=== PATIENT | male | born 1940 | race African-American/Black ===

== ENCOUNTER 2017-07-06 11:34 | Observation (INO) ==
[2017-07-06] MEDS ORDERED: ASPIRIN 325 MG TABLET PO STA (12:04)
[2017-07-06 12:26] LABS: Basophils % 0.3 % (0.0-0.8); Eosinophils # 0.1 10*3/uL (0.0-0.87); Eosinophils % 1.5 % (0.00-10.9); Hematocrit 41.6 VOL% (42.0-52.0); Hemoglobin 13.4 GM/DL (14.0-18.0); Immature Granulocytes % 0.3 %; Immature Granulocytes Absolute 0.02 #; Lymphocytes # 1.7 10*3/uL (1.4-4.0); Lymphocytes % 28.8 % (21.2-54.2); Mean Corpuscular HGB Conc 32.2 GM/DL (32-36); Mean Corpuscular Hemoglobin 25 PG (27-34); Mean Platelet Volume 10.8 FL (9.6-12.0); Monocytes # 0.6 10*3/uL (0.11-0.8); Monocytes % 9.6 % (1.7-12.7); Neutrophils # 3.5 10*3/uL (1.4-7.4); Neutrophils % 59.5 % (38.7-73.9); Platelet Count 191 T/CUMM (130-400); Red Blood Count 5.33 MC/CUMM (3.8-5.5); Red Cell Distribution Width 15.9 % (9.3-17.3); White Blood Count 5.9 T/CUMM (4-12)
[2017-07-06 12:38] LABS: Apearance,Urine Slightly Hazy (Clear); Bacteria,Urine Occasional /HPF (Few); Bilirubin,Urine Negative (Negative); Blood, Urine Moderate mg/dL (Negative); Glucose,Urine (UA) Negative (Negative); Ketones,Urine Negative (Negative); Mucus,Urine Occasional /LPF (Occasional); Nitrite,Urine Negative (Negative); Protein,Urine 100 MG/DL; RBC,Urine 1 /HPF (0-4); Squamous Epithelial Cell,Urine Occasional /HPF (0-10); Urine Color Yellow (Yellow); Urine Specific Gravity 1.015 (1.001-1.035); Urine Urobilinogen < 2.0 EU/DL (0.2-1.0); WBC,Urine 1 /HPF (0-6)
[2017-07-06] MEDS ORDERED: ASPIRIN 325 MG TABLET ONE (12:38)
[2017-07-06 12:51] LABS: Alanine Aminotransferase 16 U/L (16-61); Albumin 3.7 G/DL (3.4-5.0); Alkaline Phosphatase 103 U/L (45-117); Aspartate Amino Transferase 15 U/L (0-37); Bilirubin,Total < 0.39 MG/DL (0.2-1.0); Blood Urea Nitrogen 19 MG/DL (7-18); Calcium 9.2 MG/DL (8.5-10.1); Glucose 101 MG/DL (74-106); Osmolality,Calculated 280.4 MOS/KG (273-304); Potassium 3.7 MMOL/L (3.5-5.1); Sodium 140 MMOL/L (136-145); Total Protein 7.3 G/DL (6.4-8.3)
[2017-07-06 13:50] LABS: Barbiturates Screen,Urine Negative (Negative); Benzodiazepines Screen,Urine Negative (Negative); Cannabinoid Screen,Urine Negative (Negative); Opiate Screen,Urine Negative (Negative); Phencyclidine Screen,Urine Negative (Negative)
[2017-07-06] MEDS ORDERED: ACETAMINOPHEN 325 MG TABLET PO PRN (16:13)
[2017-07-06] MEDS ORDERED: NITROGLYCERIN SL 0.4 MG TABLET SL PRN (16:13)
[2017-07-06] MEDS ORDERED: DOCUSATE SODIUM 100 MG CAPSULE PO PRN (16:13)
[2017-07-06 23:07] LABS: Troponin I Only 0.066 NG/ML (0.00-0.045)
[2017-07-07 05:27] LABS: Basophils % 0.3 % (0.0-0.8); Eosinophils # 0.2 10*3/uL (0.0-0.87); Hematocrit 37.1 VOL% (42.0-52.0); Hemoglobin 11.6 GM/DL (14.0-18.0); Immature Granulocytes % 0.3 %; Immature Granulocytes Absolute 0.02 #; Lymphocytes # 1.8 10*3/uL (1.4-4.0); Mean Corpuscular HGB Conc 31.3 GM/DL (32-36); Mean Corpuscular Hemoglobin 25 PG (27-34); Mean Corpuscular Volume 79.4 FL (87-102); Mean Platelet Volume 10.7 FL (9.6-12.0); Monocytes # 0.6 10*3/uL (0.11-0.8); Monocytes % 10.5 % (1.7-12.7); Neutrophils # 3.1 10*3/uL (1.4-7.4); Neutrophils % 53.9 % (38.7-73.9); Platelet Count 170 T/CUMM (130-400); Red Blood Count 4.67 MC/CUMM (3.8-5.5); Red Cell Distribution Width 15.9 % (9.3-17.3); White Blood Count 5.7 T/CUMM (4-12)
[2017-07-07 05:57] LABS: Calcium 8.8 MG/DL (8.5-10.1); Osmolality,Calculated 284.1 MOS/KG (273-304); Potassium 3.8 MMOL/L (3.5-5.1); Thyroid Stimulating Hormone 1.16 uIU/ml (0.358-3.74)
[2017-07-07 07:35] VITALS: BP 148/70
[2017-07-07 07:36] LABS: Troponin I Only 0.055 NG/ML (0.00-0.045)
[2017-07-07] MEDS ORDERED: POTASSIUM CHLORIDE 20 MEQ TABLET PO SCH (09:00)
[2017-07-07] MEDS ORDERED: CLOPIDOGREL 75 MG TABLET PO SCH (09:00)
[2017-07-07] MEDS ORDERED: amLODIPine 5 MG TABLET PO SCH (09:00)
[2017-07-07] MEDS ORDERED: PANTOPRAZOLE 40 MG TABLET PO SCH (09:00)
[2017-07-07] MEDS ORDERED: ASPIRIN EC 81 MG TABLET PO SCH (09:00)
[2017-07-07] MEDS ORDERED: CARVEDILOL 25 MG TABLET PO SCH ×2 (09:00→21:00)
[2017-07-07] MEDS ORDERED: VALSARTAN/HCTZ 80-12.5 MG TABLET PO SCH (09:00)
[2017-07-07] MEDS ORDERED: FUROSEMIDE 40 MG TABLET PO SCH (12:30)
== END 2017-07-07 14:39 | disposition home or self-care (01) ==
LOC: EDBD → EDUNIT# → N.EDINP 11:34 → N.ED 11:34 → N.5E 15:50
PROVIDERS: ADMIT Internal Medicine Nephrology; ATTEND Internal Medicine Nephrology

== ENCOUNTER 2018-05-06 14:10 | Observation (INO) ==
[2018-05-06 15:06] LABS: Basophils % 0.4 % (0.0-0.8); Eosinophils # 0.1 10*3/uL (0.0-0.87); Eosinophils % 2.4 % (0.00-10.9); Hematocrit 38.8 VOL% (42.0-52.0); Hemoglobin 12.3 GM/DL (14.0-18.0); Immature Granulocytes % 0.2 %; Immature Granulocytes Absolute 0.01 #; Lymphocytes # 1.7 10*3/uL (1.4-4.0); Lymphocytes % 32.2 % (21.2-54.2); Mean Corpuscular HGB Conc 31.7 GM/DL (32-36); Mean Corpuscular Hemoglobin 24 PG (27-34); Mean Corpuscular Volume 76.4 FL (87-102); Monocytes # 0.5 10*3/uL (0.11-0.8); Monocytes % 8.8 % (1.7-12.7); Platelet Count 182 T/CUMM (130-400); Red Blood Count 5.08 MC/CUMM (3.8-5.5); Red Cell Distribution Width 16.2 % (9.3-17.3); White Blood Count 5.3 T/CUMM (4-12)
[2018-05-06 15:14] LABS: INR 1.1; PT Patient Result 11.1 SECS; Partial Thromboplastin Time 28.9 SECS (0-40)
[2018-05-06 15:26] LABS: Alanine Aminotransferase 19 U/L (16-61); Albumin 3.3 G/DL (3.4-5.0); Alkaline Phosphatase 91 U/L (45-117); Aspartate Amino Transferase 18 U/L (0-37); Bilirubin,Total < 0.39 MG/DL (0.2-1.0); Blood Urea Nitrogen 16 MG/DL (7-18); Calcium 8.3 MG/DL (8.5-10.1); Glucose 109 MG/DL (74-106); Osmolality,Calculated 287.8 MOS/KG (273-304); Potassium 3.1 MMOL/L (3.5-5.1); Sodium 144 MMOL/L (136-145); Total Protein 6.7 G/DL (6.4-8.3)
[2018-05-06] MEDS ORDERED: POTASSIUM CHLORIDE 20 MEQ TABLET PO STA (16:07)
[2018-05-06 17:28] LABS: Apearance,Urine CLEAR (Clear); Bilirubin,Urine Negative (Negative); Blood, Urine Negative (Negative); Glucose,Urine (UA) Negative (Negative); Ketones,Urine Negative (Negative); Mucus,Urine Occasional /LPF (Occasional); Nitrite,Urine Negative (Negative); Protein,Urine 30 MG/DL; RBC,Urine <1 /HPF (0-4); Squamous Epithelial Cell,Urine Occasional /HPF (0-10); Urine Color Yellow (Yellow); Urine Specific Gravity 1.012 (1.001-1.035); WBC,Urine <1 /HPF (0-6)
[2018-05-06] MEDS ORDERED: NITROGLYCERIN SL 0.4 MG TABLET SL PRN (20:27)
[2018-05-06] MEDS ORDERED: ONDANSETRON 4 MG/2 ML VIAL IV PRN (20:31)
[2018-05-06] MEDS ORDERED: MAGNESIUM SULF RIDER 2 GM in PREMIX 1 EACH IV ONE (20:36)
[2018-05-06] MEDS: POTASSIUM CHLORIDE 20 MEQ TABLET PO SCH (20:55)
[2018-05-06] MEDS: CARVEDILOL 25 MG TABLET PO SCH (20:55)
[2018-05-06] MEDS: NIFEdipine 10 MG CAPSULE PO PRN (20:55)
[2018-05-06] MEDS ORDERED: ROSUVASTATIN 20 MG TABLET PO SCH (21:00)
[2018-05-06] MEDS ORDERED: ENOXAPARIN 30 MG/0.3 ML SYRINGE SUBCUT SCH (21:00)
[2018-05-07] MEDS: POTASSIUM CHLORIDE 20 MEQ TABLET PO SCH ×2 (00:56→05:24)
[2018-05-07] MEDS: NIFEdipine 10 MG CAPSULE PO PRN (05:24)
[2018-05-07 06:40] LABS: Troponin I 0.079 NG/ML (0.00-0.045)
[2018-05-07 06:46] LABS: Calcium 8.8 MG/DL (8.5-10.1); Osmolality,Calculated 283.1 MOS/KG (273-304); Potassium 3.5 MMOL/L (3.5-5.1); Thyroid Stimulating Hormone 1.86 uIU/ml (0.358-3.74)
[2018-05-07] MEDS ORDERED: ASPIRIN EC 81 MG TABLET PO SCH (09:00)
[2018-05-07] MEDS ORDERED: amLODIPine 5 MG TABLET PO SCH (09:00)
[2018-05-07] MEDS ORDERED: FINASTERIDE 5 MG TABLET PO SCH (09:00)
[2018-05-07] MEDS ORDERED: VALSARTAN/HCTZ 80-12.5 MG TABLET PO SCH (09:00)
[2018-05-07] MEDS ORDERED: CLOPIDOGREL 75 MG TABLET PO SCH (09:00)
[2018-05-07] MEDS ORDERED: PANTOPRAZOLE 40 MG TABLET PO SCH (09:00)
[2018-05-07] MEDS: CARVEDILOL 25 MG TABLET PO SCH (09:32)
[2018-05-07 11:36] VITALS: BP 145/74
== END 2018-05-07 14:46 | disposition home or self-care (01) ==
LOC: N.ED 14:10 → N.EDINP 14:10 → N.3E 19:50
PROVIDERS: ADMIT Internal Medicine; ATTEND Internal Medicine

== ENCOUNTER 2018-11-01 12:37 | Inpatient (IN) ==
[2018-11-01 14:16] LABS: Alanine Aminotransferase 24 U/L (16-61); Albumin 2.6 G/DL (3.4-5.0); Alkaline Phosphatase 93 U/L (45-117); Aspartate Amino Transferase 17 U/L (0-37); Bilirubin,Total < 0.39 MG/DL (0.2-1.0); Blood Urea Nitrogen 15 MG/DL (7-18); Calcium 8.2 MG/DL (8.5-10.1); Glucose 108 MG/DL (74-106); Potassium 3.2 MMOL/L (3.5-5.1); Sodium 143 MMOL/L (136-145); Total Protein 6.4 G/DL (6.4-8.3)
[2018-11-01 14:19] LABS: Basophils % 0.4 % (0.0-0.8); Eosinophils # 0.1 10*3/uL (0.0-0.87); Hemoglobin 11.9 GM/DL (14.0-18.0); Immature Granulocytes % 0.6 %; Immature Granulocytes Absolute 0.05 #; Lymphocytes # 1.7 10*3/uL (1.4-4.0); Lymphocytes % 19.9 % (21.2-54.2); Mean Corpuscular HGB Conc 29.8 GM/DL (32-36); Mean Corpuscular Hemoglobin 24 PG (27-34); Mean Platelet Volume 11.1 FL (9.6-12.0); Monocytes # 0.7 10*3/uL (0.11-0.8); Monocytes % 8.5 % (1.7-12.7); Neutrophils # 5.8 10*3/uL (1.4-7.4); Neutrophils % 69.6 % (38.7-73.9); Platelet Count 230 T/CUMM (130-400); Red Blood Count 4.94 MC/CUMM (3.8-5.5); Red Cell Distribution Width 17.2 % (9.3-17.3); White Blood Count 8.4 T/CUMM (4-12)
[2018-11-01] MEDS ORDERED: POTASSIUM CHLORIDE RIDER 20 MEQ in PREMIX 1 EACH IV STA (15:32)
[2018-11-01] MEDS ORDERED: POTASSIUM CHLORIDE RIDER 10 MEQ in PREMIX 1 EACH IV STA (15:43)
[2018-11-01] MEDS ORDERED: POTASSIUM CHLORIDE RIDER 10 MEQ in PREMIX 1 EACH IV SCH ×2 (16:00→23:00)
[2018-11-01] MEDS ORDERED: hydrALAZINE 20 MG/1 ML VIAL IV STA (19:03)
[2018-11-01] MEDS ORDERED: ALBUTEROL/IPRATROPIUM 3 ML NEB RESP TX ONE (20:20)
[2018-11-01] MEDS ORDERED: ALBUTEROL 2.5 MG/3 ML NEB RESP TX PRN (20:27)
[2018-11-01] MEDS ORDERED: ACETAMINOPHEN 325 MG TABLET PO PRN (20:27)
[2018-11-01] MEDS ORDERED: SODIUM CHLORIDE 0.45% 1,000 ML IV SCH (20:30)
[2018-11-01] MEDS: AZITHROMYCIN INJ 500 MG in SODIUM CHLORIDE 0.9% 250 ML IV SCH (20:51)
[2018-11-01] MEDS: ENOXAPARIN 40 MG/0.4 ML SYRINGE SUBCUT SCH (20:54)
[2018-11-01] MEDS ORDERED: NITROGLYCERIN SL 0.4 MG TABLET SL PRN (21:50)
[2018-11-01 22:49] LABS: Troponin I 0.083 NG/ML (0.00-0.045)
[2018-11-01] MEDS: FUROSEMIDE 40 MG/4 ML VIAL IV SCH (23:12)
[2018-11-01] MEDS: guaiFENesin/DM ER 600-30 MG TABLET PO SCH (23:12)
[2018-11-02] MEDS: PIPERACILLIN/TAZOBACTAM 3,375 MG in SODIUM CHLORIDE 0.9% 100 ML IV SCH ×3 (02:53→20:25)
[2018-11-02] MEDS: FUROSEMIDE 40 MG/4 ML VIAL IV SCH (05:12)
[2018-11-02 05:59] LABS: Basophils % 0.2 % (0.0-0.8); Eosinophils # 0.1 10*3/uL (0.0-0.87); Eosinophils % 0.6 % (0.00-10.9); Hematocrit 40.8 VOL% (42.0-52.0); Hemoglobin 12.4 GM/DL (14.0-18.0); Immature Granulocytes % 0.5 %; Immature Granulocytes Absolute 0.04 #; Lymphocytes # 1.8 10*3/uL (1.4-4.0); Lymphocytes % 21.2 % (21.2-54.2); Mean Corpuscular HGB Conc 30.4 GM/DL (32-36); Mean Corpuscular Hemoglobin 24 PG (27-34); Mean Corpuscular Volume 78.9 FL (87-102); Mean Platelet Volume 11.6 FL (9.6-12.0); Monocytes # 0.8 10*3/uL (0.11-0.8); Monocytes % 9.7 % (1.7-12.7); Neutrophils # 5.8 10*3/uL (1.4-7.4); Neutrophils % 67.8 % (38.7-73.9); Platelet Count 259 T/CUMM (130-400); Red Blood Count 5.17 MC/CUMM (3.8-5.5); Red Cell Distribution Width 17.1 % (9.3-17.3); White Blood Count 8.6 T/CUMM (4-12)
[2018-11-02 06:14] LABS: Calcium 8.8 MG/DL (8.5-10.1); Osmolality,Calculated 285.8 MOS/KG (273-304); Potassium 3.1 MMOL/L (3.5-5.1)
[2018-11-02 06:44] LABS: Troponin I 0.097 NG/ML (0.00-0.045)
[2018-11-02] MEDS: FINASTERIDE 5 MG TABLET PO SCH (08:16)
[2018-11-02] MEDS: POTASSIUM CHLORIDE 20 MEQ TABLET PO SCH ×4 (08:16→20:31)
[2018-11-02] MEDS: ASPIRIN EC 81 MG TABLET PO SCH (08:16)
[2018-11-02] MEDS: ROSUVASTATIN 20 MG TABLET PO SCH (08:16)
[2018-11-02] MEDS: guaiFENesin/DM ER 600-30 MG TABLET PO SCH ×2 (08:16→20:27)
[2018-11-02] MEDS: LOSARTAN 50 MG TABLET PO SCH (08:16)
[2018-11-02] MEDS: FLUTICASONE 50 MCG NASAL SPRAY 16 GM BOTTLE BOTH NARES SCH ×2 (08:17→20:27)
[2018-11-02] MEDS: CLOPIDOGREL 75 MG TABLET PO SCH (08:18)
[2018-11-02] MEDS: CARVEDILOL 25 MG TABLET PO SCH ×2 (08:18→20:26)
[2018-11-02] MEDS ORDERED: FUROSEMIDE 40 MG TABLET PO SCH (09:00)
[2018-11-02] MEDS ORDERED: LOSARTAN 25 MG TABLET PO SCH (09:00)
[2018-11-02 14:43] LABS: Troponin I 0.088 NG/ML (0.00-0.045)
[2018-11-02] MEDS: DOCUSATE SODIUM 100 MG CAPSULE PO PRN (14:48)
[2018-11-02] MEDS ORDERED: MAGNESIUM HYDROXIDE SUSP 30 ML UDCUP PO PRN (20:23)
[2018-11-02] MEDS: ENOXAPARIN 40 MG/0.4 ML SYRINGE SUBCUT SCH (20:27)
[2018-11-02] MEDS ORDERED: POTASSIUM CHLORIDE 20 MEQ TABLET PO SCH (20:30)
[2018-11-03] MEDS: AZITHROMYCIN INJ 500 MG in SODIUM CHLORIDE 0.9% 250 ML IV SCH (00:22)
[2018-11-03] MEDS: PIPERACILLIN/TAZOBACTAM 3,375 MG in SODIUM CHLORIDE 0.9% 100 ML IV SCH (03:47)
[2018-11-03 05:54] LABS: Calcium 8.5 MG/DL (8.5-10.1); Osmolality,Calculated 291.7 MOS/KG (273-304); Potassium 4.3 MMOL/L (3.5-5.1)
[2018-11-03 07:16] VITALS: BP 170/80
[2018-11-03] MEDS: ASPIRIN EC 81 MG TABLET PO SCH (08:52)
[2018-11-03] MEDS: CARVEDILOL 25 MG TABLET PO SCH (08:52)
[2018-11-03] MEDS: DOCUSATE SODIUM 100 MG CAPSULE PO PRN (08:52)
[2018-11-03] MEDS: CLOPIDOGREL 75 MG TABLET PO SCH (08:52)
[2018-11-03] MEDS: LOSARTAN 50 MG TABLET PO SCH (08:52)
[2018-11-03] MEDS: ROSUVASTATIN 20 MG TABLET PO SCH (08:52)
[2018-11-03] MEDS: guaiFENesin/DM ER 600-30 MG TABLET PO SCH (08:52)
[2018-11-03] MEDS: FINASTERIDE 5 MG TABLET PO SCH (08:52)
[2018-11-03] MEDS: FLUTICASONE 50 MCG NASAL SPRAY 16 GM BOTTLE BOTH NARES SCH (08:53)
== END 2018-11-03 12:23 | disposition home or self-care (01) | DRG 291 ==
LOC: N.ED 12:37 → N.EDINP 19:48 → SUATTDRO 19:48 → N.TELEN 20:10 → N.5E 20:47
PROVIDERS: ADMIT Nurse Practitioner Family; ATTEND Internal Medicine Cardiovascular Disease

== ENCOUNTER 2018-12-07 12:47 | Inpatient (IN) ==
[2018-12-07] MEDS ORDERED: FUROSEMIDE 40 MG/4 ML VIAL IV STA (13:47)
[2018-12-07 14:17] LABS: Alanine Aminotransferase 16 U/L (16-61); Albumin 2.8 G/DL (3.4-5.0); Alkaline Phosphatase 99 U/L (45-117); Aspartate Amino Transferase 19 U/L (0-37); Blood Urea Nitrogen 17 MG/DL (7-18); Calcium 8.1 MG/DL (8.5-10.1); Glucose 112 MG/DL (74-106); Osmolality,Calculated 288.8 MOS/KG (273-304); Sodium 144 MMOL/L (136-145); Total Protein 6.1 G/DL (6.4-8.3)
[2018-12-07 14:19] LABS: Troponin I 0.049 NG/ML (0.00-0.045)
[2018-12-07 14:20] LABS: PT Patient Result 10.9 SECS
[2018-12-07 14:58] LABS: Basophils % 0.3 % (0.0-0.8); Eosinophils # 0.2 10*3/uL (0.0-0.87); Hematocrit 40.3 VOL% (42.0-52.0); Immature Granulocytes % 0.3 %; Immature Granulocytes Absolute 0.02 #; Lymphocytes # 1.6 10*3/uL (1.4-4.0); Lymphocytes % 23.2 % (21.2-54.2); Mean Corpuscular HGB Conc 29.5 GM/DL (32-36); Mean Corpuscular Hemoglobin 24 PG (27-34); Mean Corpuscular Volume 82.4 FL (87-102); Mean Platelet Volume 11.6 FL (9.6-12.0); Monocytes # 0.7 10*3/uL (0.11-0.8); Monocytes % 9.8 % (1.7-12.7); Neutrophils # 4.4 10*3/uL (1.4-7.4); Neutrophils % 63.4 % (38.7-73.9); Platelet Count 184 T/CUMM (130-400); Red Blood Count 4.89 MC/CUMM (3.8-5.5); Red Cell Distribution Width 16.9 % (9.3-17.3); White Blood Count 6.9 T/CUMM (4-12)
[2018-12-07 14:59] LABS: Hemoglobin 11.9 GM/DL (14.0-18.0)
[2018-12-07] MEDS ORDERED: cefTRIAXone 1,000 MG in SODIUM CHLORIDE 0.9% 100 ML IV STA (15:08)
[2018-12-07] MEDS ORDERED: AZITHROMYCIN INJ 500 MG in SODIUM CHLORIDE 0.9% 250 ML IV STA (15:08)
[2018-12-07] MEDS ORDERED: NITROGLYCERIN 2% OINT 1 INCH/GM PACK TOP STA (15:31)
[2018-12-07] MEDS ORDERED: ACETAMINOPHEN 325 MG TABLET PO PRN (15:56)
[2018-12-07] MEDS ORDERED: ONDANSETRON 4 MG/2 ML VIAL IV PRN (15:56)
[2018-12-07] MEDS ORDERED: LACTULOSE 20 GM/30 ML UDCUP PO PRN (15:56)
[2018-12-07] MEDS ORDERED: ALBUTEROL/IPRATROPIUM 3 ML NEB RESP TX PRN (16:03)
[2018-12-07] MEDS ORDERED: cefTRIAXone 1,000 MG in SODIUM CHLORIDE 0.9% 100 ML IV SCH (16:30)
[2018-12-07 16:49] LABS: Risk Ratio 2.83; VLDL CHOLESTEROL 18.2 MG/DL
[2018-12-07 16:55] LABS: Thyroid Stimulating Hormone 1.05 uIU/ml (0.358-3.74)
[2018-12-07] MEDS ORDERED: hydrALAZINE 20 MG/1 ML VIAL IV PRN (17:01)
[2018-12-07 17:03] LABS: Apearance,Urine CLEAR (Clear); Bacteria,Urine Occasional /HPF (Few); Bilirubin,Urine Negative (Negative); Blood, Urine Negative (Negative); Glucose,Urine (UA) Negative (Negative); Ketones,Urine Negative (Negative); Mucus,Urine Occasional /LPF (Occasional); Nitrite,Urine Negative (Negative); Protein,Urine Negative; RBC,Urine 1 /HPF (0-4); Squamous Epithelial Cell,Urine Occasional /HPF (0-10); Urine Color Colorless (Yellow); Urine Specific Gravity 1.004 (1.001-1.035); Urine Urobilinogen < 2.0 EU/DL (0.2-1.0)
[2018-12-07] MEDS: ALBUTEROL 2.5 MG/3 ML NEB RESP TX SCH (19:44)
[2018-12-07] MEDS: ENOXAPARIN 40 MG/0.4 ML SYRINGE SUBCUT SCH (22:08)
[2018-12-07] MEDS: BENZONATATE 100 MG CAPSULE PO SCH (22:08)
[2018-12-07] MEDS: ROSUVASTATIN 10 MG TABLET PO SCH (22:09)
[2018-12-08] MEDS: ALBUTEROL 2.5 MG/3 ML NEB RESP TX SCH ×4 (00:35→20:10)
[2018-12-08 05:37] LABS: Calcium 8.7 MG/DL (8.5-10.1); Potassium 3.2 MMOL/L (3.5-5.1)
[2018-12-08 06:09] LABS: Basophils % 0.3 % (0.0-0.8); Eosinophils # 0.2 10*3/uL (0.0-0.87); Hematocrit 40.8 VOL% (42.0-52.0); Hemoglobin 12.3 GM/DL (14.0-18.0); Immature Granulocytes % 0.3 %; Immature Granulocytes Absolute 0.02 #; Lymphocytes % 29.3 % (21.2-54.2); Mean Corpuscular HGB Conc 30.1 GM/DL (32-36); Mean Corpuscular Hemoglobin 24 PG (27-34); Mean Corpuscular Volume 80.8 FL (87-102); Monocytes # 0.7 10*3/uL (0.11-0.8); Monocytes % 9.8 % (1.7-12.7); Neutrophils # 3.9 10*3/uL (1.4-7.4); Neutrophils % 57.3 % (38.7-73.9); Platelet Count 191 T/CUMM (130-400); Red Blood Count 5.05 MC/CUMM (3.8-5.5); Red Cell Distribution Width 17.1 % (9.3-17.3); White Blood Count 6.7 T/CUMM (4-12)
[2018-12-08] MEDS: cefTRIAXone 1,000 MG in SYRINGE 1 EACH IV SCH ×2 (06:11→16:56)
[2018-12-08 06:34] LABS: Anisocytosis 1+; Platelet Estimate Normal
[2018-12-08] MEDS: ASPIRIN EC 81 MG TABLET PO SCH (09:25)
[2018-12-08] MEDS: CLOPIDOGREL 75 MG TABLET PO SCH (09:25)
[2018-12-08] MEDS: PANTOPRAZOLE 40 MG TABLET PO SCH (09:25)
[2018-12-08] MEDS: FINASTERIDE 5 MG TABLET PO SCH (09:26)
[2018-12-08] MEDS: FUROSEMIDE 40 MG/4 ML VIAL IV SCH (09:26)
[2018-12-08] MEDS: POTASSIUM CHLORIDE 20 MEQ TABLET PO PRN ×2 (09:26→17:01)
[2018-12-08] MEDS: LOSARTAN 50 MG TABLET PO SCH (09:26)
[2018-12-08] MEDS: BENZONATATE 100 MG CAPSULE PO SCH ×3 (09:26→20:57)
[2018-12-08] MEDS ORDERED: POTASSIUM CHLORIDE 20 MEQ TABLET PO ONE (10:50)
[2018-12-08] MEDS ORDERED: MAGNESIUM HYDROXIDE SUSP 30 ML UDCUP PO ONE (13:22)
[2018-12-08] MEDS: DOCUSATE SODIUM 100 MG CAPSULE PO SCH ×2 (14:34→20:57)
[2018-12-08] MEDS: POLYETHYLENE GLYCOL POWDER 17 GM PACK PO SCH ×2 (14:34→20:57)
[2018-12-08] MEDS ORDERED: KETOROLAC 30 MG/1 ML VIAL IV ONE (16:23)
[2018-12-08] MEDS ORDERED: AZITHROMYCIN INJ 500 MG in SODIUM CHLORIDE 0.9% 250 ML IV SCH (17:00)
[2018-12-08] MEDS: ROSUVASTATIN 10 MG TABLET PO SCH (20:57)
[2018-12-08] MEDS: ENOXAPARIN 40 MG/0.4 ML SYRINGE SUBCUT SCH (20:57)
[2018-12-09] MEDS: ALBUTEROL 2.5 MG/3 ML NEB RESP TX SCH ×2 (00:39→08:14)
[2018-12-09] MEDS: cefTRIAXone 1,000 MG in SYRINGE 1 EACH IV SCH (03:52)
[2018-12-09 05:29] LABS: Basophils % 0.3 % (0.0-0.8); Eosinophils # 0.3 10*3/uL (0.0-0.87); Eosinophils % 3.7 % (0.00-10.9); Hematocrit 41.7 VOL% (42.0-52.0); Hemoglobin 12.8 GM/DL (14.0-18.0); Immature Granulocytes % 0.1 %; Immature Granulocytes Absolute 0.01 #; Lymphocytes # 1.9 10*3/uL (1.4-4.0); Lymphocytes % 27.9 % (21.2-54.2); Mean Corpuscular HGB Conc 30.7 GM/DL (32-36); Mean Corpuscular Hemoglobin 25 PG (27-34); Mean Corpuscular Volume 80.2 FL (87-102); Mean Platelet Volume 12.1 FL (9.6-12.0); Monocytes # 0.7 10*3/uL (0.11-0.8); Neutrophils # 3.9 10*3/uL (1.4-7.4); Platelet Count 173 T/CUMM (130-400); Red Cell Distribution Width 16.9 % (9.3-17.3); White Blood Count 6.7 T/CUMM (4-12)
[2018-12-09 05:54] LABS: Calcium 8.5 MG/DL (8.5-10.1); Osmolality,Calculated 293.7 MOS/KG (273-304); Potassium 4.3 MMOL/L (3.5-5.1)
[2018-12-09 06:46] LABS: Hypochromasia 1+
[2018-12-09 06:47] LABS: Ovalocytes Slight; Platelet Estimate Adequate
[2018-12-09] MEDS ORDERED: AZITHROMYCIN 250 MG TABLET PO SCH (09:00)
[2018-12-09] MEDS ORDERED: POTASSIUM CHLORIDE 20 MEQ TABLET PO SCH (09:00)
[2018-12-09] MEDS: ASPIRIN EC 81 MG TABLET PO SCH (10:04)
[2018-12-09] MEDS: FINASTERIDE 5 MG TABLET PO SCH (10:04)
[2018-12-09] MEDS: CLOPIDOGREL 75 MG TABLET PO SCH (10:04)
[2018-12-09] MEDS: DOCUSATE SODIUM 100 MG CAPSULE PO SCH (10:04)
[2018-12-09] MEDS: BENZONATATE 100 MG CAPSULE PO SCH (10:04)
[2018-12-09] MEDS: PANTOPRAZOLE 40 MG TABLET PO SCH (10:04)
[2018-12-09] MEDS: LOSARTAN 50 MG TABLET PO SCH (10:04)
[2018-12-09] MEDS: FUROSEMIDE 40 MG/4 ML VIAL IV SCH (10:05)
[2018-12-09] MEDS: POLYETHYLENE GLYCOL POWDER 17 GM PACK PO SCH (10:08)
[2018-12-09 12:35] VITALS: BP 139/86
== END 2018-12-09 13:42 | disposition home or self-care (01) | DRG 291 ==
LOC: N.ED 12:47 → N.EDINP 15:56 → N.5E 18:04
PROVIDERS: ADMIT Hospitalist; ATTEND Hospitalist

== ENCOUNTER 2019-01-04 12:50 | Inpatient (IN) ==
[2019-01-04 14:45] LABS: Calcium 8.3 MG/DL (8.5-10.1); Osmolality,Calculated 282.1 MOS/KG (273-304)
[2019-01-04] MEDS ORDERED: hydrALAZINE 20 MG/1 ML VIAL IV STA ×2 (14:53→16:05)
[2019-01-04] MEDS ORDERED: FUROSEMIDE 40 MG/4 ML VIAL IV STA (14:59)
[2019-01-04 16:18] LABS: Apearance,Urine CLOUDY (Clear); Bilirubin,Urine Negative (Negative); Blood, Urine Small mg/dL (Negative); Glucose,Urine (UA) Negative (Negative); Hyaline Casts,Urine 5 /LPF (0-3); Ketones,Urine Negative (Negative); Mucus,Urine Occasional /LPF (Occasional); Nitrite,Urine Negative (Negative); Protein,Urine 100 MG/DL; RBC,Urine 2 /HPF (0-4); Squamous Epithelial Cell,Urine Occasional /HPF (0-10); Urine Color Yellow (Yellow); Urine Specific Gravity 1.015 (1.001-1.035); WBC,Urine <1 /HPF (0-6)
[2019-01-04] MEDS ORDERED: ONDANSETRON 4 MG/2 ML VIAL IV PRN (17:26)
[2019-01-04] MEDS ORDERED: ACETAMINOPHEN 325 MG TABLET PO PRN (17:26)
[2019-01-04] MEDS ORDERED: NITROGLYCERIN SL 0.4 MG TABLET SL PRN (17:34)
[2019-01-04] MEDS ORDERED: ENOXAPARIN 30 MG/0.3 ML SYRINGE ONE (18:38)
[2019-01-04] MEDS ORDERED: CARVEDILOL 3.125 MG TABLET PO SCH (19:00)
[2019-01-04 20:20] LABS: Basophils % 0.2 % (0.0-0.8); Eosinophils # 0.1 10*3/uL (0.0-0.87); Eosinophils % 0.6 % (0.00-10.9); Hematocrit 42.1 VOL% (42.0-52.0); Hemoglobin 12.7 GM/DL (14.0-18.0); Immature Granulocytes % 0.6 %; Immature Granulocytes Absolute 0.05 #; Lymphocytes # 0.9 10*3/uL (1.4-4.0); Lymphocytes % 10.5 % (21.2-54.2); Mean Corpuscular HGB Conc 30.2 GM/DL (32-36); Mean Corpuscular Volume 79.9 FL (87-102); Mean Platelet Volume 11.6 FL (9.6-12.0); Monocytes % 10.2 % (1.7-12.7); Neutrophils % 77.9 % (38.7-73.9); Platelet Count 170 T/CUMM (130-400); Red Blood Count 5.27 MC/CUMM (3.8-5.5); Red Cell Distribution Width 16.5 % (9.3-17.3); White Blood Count 8.5 T/CUMM (4-12)
[2019-01-04 20:56] LABS: Hypochromasia 2+
[2019-01-04 20:57] LABS: Platelet Estimate Normal
[2019-01-04 20:59] LABS: Anisocytosis Slight
[2019-01-04] MEDS ORDERED: ENOXAPARIN 30 MG/0.3 ML SYRINGE SUBCUT SCH (21:00)
[2019-01-04] MEDS ORDERED: hydrALAZINE 20 MG/1 ML VIAL IV PRN (21:22)
[2019-01-04] MEDS: ROSUVASTATIN 20 MG TABLET PO SCH (21:51)
[2019-01-04] MEDS: DOCUSATE SODIUM 100 MG CAPSULE PO SCH (21:52)
[2019-01-04] MEDS: ENOXAPARIN 40 MG/0.4 ML SYRINGE SUBCUT SCH (21:52)
[2019-01-04] MEDS: CARVEDILOL 6.25 MG TABLET PO SCH (21:52)
[2019-01-05 05:49] LABS: Basophils % 0.3 % (0.0-0.8); Eosinophils # 0.1 10*3/uL (0.0-0.87); Eosinophils % 1.3 % (0.00-10.9); Hematocrit 39.5 VOL% (42.0-52.0); Hemoglobin 11.9 GM/DL (14.0-18.0); Immature Granulocytes % 0.5 %; Immature Granulocytes Absolute 0.03 #; Lymphocytes # 1.7 10*3/uL (1.4-4.0); Lymphocytes % 27.9 % (21.2-54.2); Mean Corpuscular HGB Conc 30.1 GM/DL (32-36); Mean Corpuscular Volume 80.1 FL (87-102); Platelet Count 155 T/CUMM (130-400); Red Blood Count 4.93 MC/CUMM (3.8-5.5); Red Cell Distribution Width 16.6 % (9.3-17.3); White Blood Count 6.2 T/CUMM (4-12)
[2019-01-05 05:51] LABS: Mean Platelet Volume 11.8 FL (9.6-12.0)
[2019-01-05 06:21] LABS: Albumin 2.8 G/DL (3.4-5.0); Bilirubin,Total 0.6 MG/DL (0.2-1.0); Total Protein 6.4 G/DL (6.4-8.3)
[2019-01-05 06:27] LABS: Anisocytosis 1+; Hypochromasia 1+; Platelet Estimate Adequate
[2019-01-05] MEDS: FUROSEMIDE 40 MG/4 ML VIAL IV SCH ×2 (08:20→17:19)
[2019-01-05] MEDS: FINASTERIDE 5 MG TABLET PO SCH (08:21)
[2019-01-05] MEDS: CARVEDILOL 6.25 MG TABLET PO SCH ×2 (08:22→17:20)
[2019-01-05] MEDS: DOCUSATE SODIUM 100 MG CAPSULE PO SCH ×2 (08:22→21:03)
[2019-01-05] MEDS: PANTOPRAZOLE 40 MG TABLET PO SCH (08:23)
[2019-01-05] MEDS: LOSARTAN 25 MG TABLET PO SCH (08:24)
[2019-01-05] MEDS: CLOPIDOGREL 75 MG TABLET PO SCH (08:33)
[2019-01-05] MEDS: ASPIRIN EC 81 MG TABLET PO SCH (08:33)
[2019-01-05] MEDS ORDERED: POTASSIUM CHLORIDE 20 MEQ TABLET PO SCH (09:00)
[2019-01-05 09:30] LABS: Risk Ratio 2.46; VLDL CHOLESTEROL 11.4 MG/DL
[2019-01-05 10:16] LABS: INR 1.1; PT Patient Result 11.6 SECS
[2019-01-05 16:30] LABS: Troponin I 0.102 NG/ML (0.00-0.045)
[2019-01-05] MEDS ORDERED: POTASSIUM CHLORIDE 20 MEQ TABLET PO ONE (17:40)
[2019-01-05] MEDS ORDERED: CYANOCOBALAMIN 1000 MCG/1 ML VIAL IM ONE (17:43)
[2019-01-05] MEDS: CHLORTHALIDONE 25 MG TABLET PO SCH (17:47)
[2019-01-05] MEDS ORDERED: ERGOCALCIFEROL 50,000 UNIT CAPSULE PO SCH (18:00)
[2019-01-05] MEDS: ENOXAPARIN 40 MG/0.4 ML SYRINGE SUBCUT SCH (21:03)
[2019-01-05] MEDS: ROSUVASTATIN 20 MG TABLET PO SCH (21:03)
[2019-01-05 21:15] LABS: Troponin I 0.098 NG/ML (0.00-0.045)
[2019-01-06 05:22] LABS: % Iron Saturation 11.8 % (18-50); Calcium 9.5 MG/DL (8.5-10.1); Ferritin 103.3 ng/ml (26-388); Osmolality,Calculated 285.1 MOS/KG (273-304)
[2019-01-06] MEDS: FUROSEMIDE 40 MG/4 ML VIAL IV SCH ×2 (09:03→16:03)
[2019-01-06] MEDS: CYANOCOBALAMIN 1000 MCG/1 ML VIAL IM SCH (09:03)
[2019-01-06] MEDS: POTASSIUM CHLORIDE 20 MEQ TABLET PO SCH ×2 (09:04→20:20)
[2019-01-06] MEDS: DOCUSATE SODIUM 100 MG CAPSULE PO SCH ×2 (09:09→20:19)
[2019-01-06] MEDS: ASPIRIN EC 81 MG TABLET PO SCH (09:09)
[2019-01-06] MEDS: SPIRONOLACTONE 25 MG TABLET PO SCH (09:09)
[2019-01-06] MEDS: CARVEDILOL 6.25 MG TABLET PO SCH ×2 (09:10→16:04)
[2019-01-06] MEDS: CHLORTHALIDONE 25 MG TABLET PO SCH (09:10)
[2019-01-06] MEDS: LOSARTAN 25 MG TABLET PO SCH (09:10)
[2019-01-06] MEDS: hydrALAZINE 25 MG TABLET PO SCH ×2 (09:10→20:20)
[2019-01-06] MEDS: POTASSIUM CHLORIDE 20 MEQ TABLET PO PRN ×2 (09:11→16:04)
[2019-01-06] MEDS: FINASTERIDE 5 MG TABLET PO SCH (09:11)
[2019-01-06] MEDS: PANTOPRAZOLE 40 MG TABLET PO SCH (09:11)
[2019-01-06] MEDS: CLOPIDOGREL 75 MG TABLET PO SCH (09:11)
[2019-01-06] MEDS: ROSUVASTATIN 20 MG TABLET PO SCH (20:20)
[2019-01-07 04:29] LABS: Basophils % 0.2 % (0.0-0.8); Eosinophils # 0.2 10*3/uL (0.0-0.87); Eosinophils % 3.8 % (0.00-10.9); Hematocrit 43.3 VOL% (42.0-52.0); Hemoglobin 13.3 GM/DL (14.0-18.0); Immature Granulocytes % 0.3 %; Immature Granulocytes Absolute 0.02 #; Lymphocytes # 2.2 10*3/uL (1.4-4.0); Lymphocytes % 35.3 % (21.2-54.2); Mean Corpuscular HGB Conc 30.7 GM/DL (32-36); Mean Corpuscular Volume 78.3 FL (87-102); Mean Platelet Volume 11.4 FL (9.6-12.0); Monocytes % 11.4 % (1.7-12.7); Platelet Count 213 T/CUMM (130-400); Red Blood Count 5.53 MC/CUMM (3.8-5.5); Red Cell Distribution Width 16.3 % (9.3-17.3); White Blood Count 6.3 T/CUMM (4-12)
[2019-01-07 05:06] LABS: Anisocytosis 1+; Hypochromasia 1+
[2019-01-07 05:07] LABS: Platelet Estimate Adequate
[2019-01-07 05:07] LABS: Calcium 9.4 MG/DL (8.5-10.1); Osmolality,Calculated 282.5 MOS/KG (273-304)
[2019-01-07] MEDS ORDERED: LACTATED RINGERS 500 ML IV SCH (08:00)
[2019-01-07] MEDS ORDERED: LIDOCAINE 100 MG/5 ML SYRINGE ONE (09:00)
[2019-01-07] MEDS ORDERED: PROPOFOL 200 MG/20 ML VIAL IV ONE (09:00)
[2019-01-07] MEDS: CARVEDILOL 6.25 MG TABLET PO SCH ×2 (09:40→16:36)
[2019-01-07] MEDS: FUROSEMIDE 40 MG/4 ML VIAL IV SCH ×2 (09:40→16:36)
[2019-01-07] MEDS: hydrALAZINE 25 MG TABLET PO SCH ×2 (09:40→21:07)
[2019-01-07] MEDS: SPIRONOLACTONE 25 MG TABLET PO SCH (09:40)
[2019-01-07] MEDS: CLOPIDOGREL 75 MG TABLET PO SCH (09:41)
[2019-01-07] MEDS: DOCUSATE SODIUM 100 MG CAPSULE PO SCH ×2 (09:41→21:07)
[2019-01-07] MEDS: LOSARTAN 25 MG TABLET PO SCH (09:41)
[2019-01-07] MEDS: FINASTERIDE 5 MG TABLET PO SCH (09:41)
[2019-01-07] MEDS: POTASSIUM CHLORIDE 20 MEQ TABLET PO SCH ×2 (09:41→21:06)
[2019-01-07] MEDS: PANTOPRAZOLE 40 MG TABLET PO SCH (09:41)
[2019-01-07] MEDS: CYANOCOBALAMIN 1000 MCG/1 ML VIAL IM SCH (09:42)
[2019-01-07] MEDS: CHLORTHALIDONE 25 MG TABLET PO SCH (09:42)
[2019-01-07] MEDS: ASPIRIN EC 81 MG TABLET PO SCH (09:42)
[2019-01-07] MEDS: ROSUVASTATIN 20 MG TABLET PO SCH (21:06)
[2019-01-07] MEDS: MAGNESIUM HYDROXIDE SUSP 30 ML UDCUP PO PRN (21:48)
[2019-01-08 05:16] LABS: Calcium 9.1 MG/DL (8.5-10.1); Osmolality,Calculated 285.4 MOS/KG (273-304)
[2019-01-08] MEDS ORDERED: BISACODYL 10 MG SUPP RECTAL ONE (08:14)
[2019-01-08] MEDS: CYANOCOBALAMIN 1000 MCG/1 ML VIAL IM SCH (08:50)
[2019-01-08] MEDS: FUROSEMIDE 40 MG/4 ML VIAL IV SCH ×2 (08:50→16:24)
[2019-01-08] MEDS: hydrALAZINE 25 MG TABLET PO SCH ×2 (08:51→21:18)
[2019-01-08] MEDS: DOCUSATE SODIUM 100 MG CAPSULE PO SCH ×2 (08:51→21:18)
[2019-01-08] MEDS: FINASTERIDE 5 MG TABLET PO SCH (08:51)
[2019-01-08] MEDS: CARVEDILOL 6.25 MG TABLET PO SCH ×2 (08:51→16:24)
[2019-01-08] MEDS: ASPIRIN EC 81 MG TABLET PO SCH (08:51)
[2019-01-08] MEDS: LOSARTAN 25 MG TABLET PO SCH (08:51)
[2019-01-08] MEDS: PANTOPRAZOLE 40 MG TABLET PO SCH (08:51)
[2019-01-08] MEDS: CLOPIDOGREL 75 MG TABLET PO SCH (08:51)
[2019-01-08] MEDS: POTASSIUM CHLORIDE 20 MEQ TABLET PO SCH ×2 (08:52→21:18)
[2019-01-08] MEDS ORDERED: SODIUM PHOSPHATE ENEMA 133 ML BOTTLE RECTAL ONE (14:29)
[2019-01-08] MEDS: MAGNESIUM HYDROXIDE SUSP 30 ML UDCUP PO PRN (21:17)
[2019-01-08] MEDS: ROSUVASTATIN 20 MG TABLET PO SCH (21:18)
[2019-01-09] MEDS: FINASTERIDE 5 MG TABLET PO SCH (08:43)
[2019-01-09] MEDS: CLOPIDOGREL 75 MG TABLET PO SCH (08:43)
[2019-01-09] MEDS: DOCUSATE SODIUM 100 MG CAPSULE PO SCH ×2 (08:43→20:28)
[2019-01-09] MEDS: LOSARTAN 25 MG TABLET PO SCH (08:43)
[2019-01-09] MEDS: ASPIRIN EC 81 MG TABLET PO SCH (08:43)
[2019-01-09] MEDS: FUROSEMIDE 40 MG/4 ML VIAL IV SCH ×2 (08:44→15:47)
[2019-01-09] MEDS: MAGNESIUM HYDROXIDE SUSP 30 ML UDCUP PO PRN ×2 (08:44→15:47)
[2019-01-09] MEDS: CYANOCOBALAMIN 1000 MCG/1 ML VIAL IM SCH (08:44)
[2019-01-09] MEDS: POTASSIUM CHLORIDE 20 MEQ TABLET PO SCH ×2 (08:44→20:28)
[2019-01-09] MEDS: CARVEDILOL 6.25 MG TABLET PO SCH ×2 (08:44→16:02)
[2019-01-09] MEDS: PANTOPRAZOLE 40 MG TABLET PO SCH (08:44)
[2019-01-09] MEDS: hydrALAZINE 25 MG TABLET PO SCH ×2 (09:35→20:28)
[2019-01-09] MEDS: ROSUVASTATIN 20 MG TABLET PO SCH (20:28)
[2019-01-10] MEDS: FUROSEMIDE 40 MG/4 ML VIAL IV SCH (08:00)
[2019-01-10] MEDS: CARVEDILOL 6.25 MG TABLET PO SCH (09:03)
[2019-01-10] MEDS: FINASTERIDE 5 MG TABLET PO SCH (09:03)
[2019-01-10] MEDS: CLOPIDOGREL 75 MG TABLET PO SCH (09:04)
[2019-01-10] MEDS: PANTOPRAZOLE 40 MG TABLET PO SCH (09:04)
[2019-01-10] MEDS: LOSARTAN 25 MG TABLET PO SCH (09:04)
[2019-01-10] MEDS: POTASSIUM CHLORIDE 20 MEQ TABLET PO SCH (09:04)
[2019-01-10] MEDS: DOCUSATE SODIUM 100 MG CAPSULE PO SCH (09:04)
[2019-01-10] MEDS: hydrALAZINE 25 MG TABLET PO SCH (09:04)
[2019-01-10] MEDS: ASPIRIN EC 81 MG TABLET PO SCH (09:04)
[2019-01-10] MEDS: CYANOCOBALAMIN 1000 MCG/1 ML VIAL IM SCH (09:06)
[2019-01-10 12:47] VITALS: BP 133/71
== END 2019-01-10 14:00 | disposition home or self-care (01) | DRG 292 ==
LOC: N.ED 12:50 → N.EDINP 12:50 → UNDODISOB 18:48 → N.TELEN 18:48
PROVIDERS: ADMIT Family Medicine; ATTEND Family Medicine

== ENCOUNTER 2019-02-17 05:12 | Inpatient (IN) ==
[2019-02-17] MEDS ORDERED: ASPIRIN 325 MG TABLET PO STA (05:47)
[2019-02-17] MEDS ORDERED: hydrALAZINE 20 MG/1 ML VIAL IV STA ×2 (05:48→05:59)
[2019-02-17] MEDS ORDERED: LABETALOL 20 MG/4 ML SYRINGE IV STA ×2 (05:48→05:59)
[2019-02-17 05:59] LABS: Basophils % 0.3 % (0.0-0.8); Eosinophils # 0.2 10*3/uL (0.0-0.87); Eosinophils % 2.4 % (0.00-10.9); Hematocrit 37.9 VOL% (42.0-52.0); Immature Granulocytes % 0.6 %; Immature Granulocytes Absolute 0.04 #; Lymphocytes # 1.6 10*3/uL (1.4-4.0); Mean Corpuscular HGB Conc 29.3 GM/DL (32-36); Monocytes % 8.9 % (1.7-12.7); NRBC # 0.02 10*3/uL; Neutrophils % 64.8 % (38.7-73.9); Platelet Count 272 T/CUMM (130-400); Red Blood Count 4.68 MC/CUMM (3.8-5.5); Red Cell Distribution Width 17.3 % (9.3-17.3); White Blood Count 6.8 T/CUMM (4-12)
[2019-02-17 06:00] LABS: Hemoglobin 11.1 GM/DL (14.0-18.0)
[2019-02-17] MEDS ORDERED: niCARdipine INJ 25 MG in SODIUM CHLORIDE 0.9% 250 ML IV PRN (06:03)
[2019-02-17] MEDS ORDERED: niCARdipine 25 MG/10 ML VIAL IV ONE (06:07)
[2019-02-17 06:11] LABS: Alanine Aminotransferase 38 U/L (16-61); Albumin 3.1 G/DL (3.4-5.0); Alkaline Phosphatase 110 U/L (45-117); Aspartate Amino Transferase 27 U/L (0-37); Bilirubin,Total < 0.39 MG/DL (0.2-1.0); Blood Urea Nitrogen 14 MG/DL (7-18); Calcium 8.7 MG/DL (8.5-10.1); Glucose 104 MG/DL (74-106); Osmolality,Calculated 294.3 MOS/KG (273-304); Total Protein 7.1 G/DL (6.4-8.3)
[2019-02-17] MEDS ORDERED: ACETAMINOPHEN 325 MG TABLET PO PRN (07:15)
[2019-02-17] MEDS ORDERED: ONDANSETRON 4 MG/2 ML VIAL IV PRN (07:15)
[2019-02-17] MEDS ORDERED: PROMETHAZINE 25 MG/1 ML VIAL IM PRN (07:15)
[2019-02-17] MEDS ORDERED: ENOXAPARIN 40 MG/0.4 ML SYRINGE SUBCUT SCH (07:30)
[2019-02-17 07:44] LABS: Risk Ratio 2.71; VLDL CHOLESTEROL 13.4 MG/DL
[2019-02-17] MEDS ORDERED: LISINOPRIL/HCTZ 20-12.5 MG TABLET PO SCH (09:00)
[2019-02-17 09:33] LABS: Apearance,Urine CLEAR (Clear); Bilirubin,Urine Negative (Negative); Blood, Urine Negative (Negative); Glucose,Urine (UA) Negative (Negative); Ketones,Urine Negative (Negative); Mucus,Urine Occasional /LPF (Occasional); Nitrite,Urine Negative (Negative); Protein,Urine 100 MG/DL; RBC,Urine 2 /HPF (0-4); Squamous Epithelial Cell,Urine Occasional /HPF (0-10); Urine Color Yellow (Yellow); Urine Specific Gravity 1.014 (1.001-1.035); Urine Urobilinogen < 2.0 EU/DL (0.2-1.0); WBC,Urine <1 /HPF (0-6)
[2019-02-17] MEDS: FUROSEMIDE 40 MG/4 ML VIAL IV SCH ×2 (09:45→17:20)
[2019-02-17] MEDS ORDERED: DEXTROSE 50% 25 GM/50 ML VIAL IV PRN (10:20)
[2019-02-17] MEDS ORDERED: GLUCAGON 1 MG VIAL IM PRN (10:20)
[2019-02-17] MEDS: CARVEDILOL 25 MG TABLET PO SCH ×2 (13:00→20:39)
[2019-02-17] MEDS: ASPIRIN EC 81 MG TABLET PO SCH (13:00)
[2019-02-17] MEDS: PANTOPRAZOLE 40 MG TABLET PO SCH (13:00)
[2019-02-17] MEDS: CLOPIDOGREL 75 MG TABLET PO SCH (13:00)
[2019-02-17] MEDS: FINASTERIDE 5 MG TABLET PO SCH (13:00)
[2019-02-17] MEDS ORDERED: MORPHINE 4 MG/1 ML VIAL IV PRN (13:21)
[2019-02-17] MEDS: NITROGLYCERIN 2% OINT 1 INCH/GM PACK TOP SCH ×3 (14:45→23:29)
[2019-02-17] MEDS: ENOXAPARIN 100 MG/ML SYRINGE SUBCUT SCH (14:45)
[2019-02-17] MEDS: INSULIN REGULAR 100 UNIT/ML SUBCUT SCH ×2 (15:31→18:01)
[2019-02-17] MEDS ORDERED: metFORMIN 500 MG TABLET PO SCH (17:00)
[2019-02-17] MEDS: NITROGLYCERIN SL 0.4 MG TABLET SL PRN ×3 (19:55→20:16)
[2019-02-17] MEDS: DOCUSATE SODIUM 100 MG CAPSULE PO SCH (20:39)
[2019-02-17] MEDS: hydrALAZINE 25 MG TABLET PO SCH (20:39)
[2019-02-17] MEDS: ROSUVASTATIN 20 MG TABLET PO SCH (20:39)
[2019-02-17] MEDS ORDERED: hydrALAZINE 20 MG/1 ML VIAL IV PRN (22:28)
[2019-02-18] MEDS: ENOXAPARIN 100 MG/ML SYRINGE SUBCUT SCH ×3 (01:05→13:10)
[2019-02-18] MEDS: NITROGLYCERIN 2% OINT 1 INCH/GM PACK TOP SCH ×3 (05:52→17:14)
[2019-02-18 06:12] LABS: Basophils % 0.1 % (0.0-0.8); Eosinophils # 0.2 10*3/uL (0.0-0.87); Eosinophils % 2.7 % (0.00-10.9); Hematocrit 35.8 VOL% (42.0-52.0); Hemoglobin 10.6 GM/DL (14.0-18.0); Immature Granulocytes % 0.5 %; Immature Granulocytes Absolute 0.04 #; Lymphocytes # 1.8 10*3/uL (1.4-4.0); Lymphocytes % 22.6 % (21.2-54.2); Mean Corpuscular HGB Conc 29.6 GM/DL (32-36); Mean Corpuscular Volume 80.1 FL (87-102); Mean Platelet Volume 12.2 FL (9.6-12.0); Monocytes % 9.6 % (1.7-12.7); Neutrophils % 64.5 % (38.7-73.9); Platelet Count 264 T/CUMM (130-400); Red Blood Count 4.47 MC/CUMM (3.8-5.5); Red Cell Distribution Width 17.4 % (9.3-17.3); White Blood Count 7.8 T/CUMM (4-12)
[2019-02-18 06:45] LABS: Calcium 8.5 MG/DL (8.5-10.1); Osmolality,Calculated 289.6 MOS/KG (273-304)
[2019-02-18 06:48] LABS: CKMB % 6.1 %
[2019-02-18 06:50] LABS: Troponin I 8.14 NG/ML (0.00-0.045)
[2019-02-18] MEDS ORDERED: POTASSIUM CHLORIDE RIDER 10 MEQ in PREMIX 1 EACH IV PRN (07:19)
[2019-02-18] MEDS: POTASSIUM CHLORIDE 20 MEQ TABLET PO PRN ×4 (07:40→14:39)
[2019-02-18] MEDS: INSULIN REGULAR 100 UNIT/ML SUBCUT SCH ×3 (08:37→17:14)
[2019-02-18] MEDS: DOCUSATE SODIUM 100 MG CAPSULE PO SCH ×2 (08:38→20:53)
[2019-02-18] MEDS: CLOPIDOGREL 75 MG TABLET PO SCH (08:38)
[2019-02-18] MEDS: LOSARTAN 25 MG TABLET PO SCH (08:38)
[2019-02-18] MEDS: hydrALAZINE 25 MG TABLET PO SCH ×2 (08:39→20:53)
[2019-02-18] MEDS: PANTOPRAZOLE 40 MG TABLET PO SCH (08:39)
[2019-02-18] MEDS: ASPIRIN EC 81 MG TABLET PO SCH (08:39)
[2019-02-18] MEDS: FINASTERIDE 5 MG TABLET PO SCH (08:39)
[2019-02-18] MEDS: POTASSIUM CHLORIDE 20 MEQ TABLET PO SCH ×2 (08:39→09:12)
[2019-02-18] MEDS: FUROSEMIDE 40 MG/4 ML VIAL IV SCH (08:40)
[2019-02-18] MEDS: CARVEDILOL 25 MG TABLET PO SCH ×2 (08:42→20:53)
[2019-02-18 09:35] LABS: Apearance,Urine CLEAR (Clear); Bacteria,Urine Occasional /HPF (Few); Bilirubin,Urine Negative (Negative); Blood, Urine Negative (Negative); Glucose,Urine (UA) Negative (Negative); Ketones,Urine Negative (Negative); Mucus,Urine Occasional /LPF (Occasional); Nitrite,Urine Negative (Negative); Protein,Urine 30 MG/DL; RBC,Urine 1 /HPF (0-4); Squamous Epithelial Cell,Urine Occasional /HPF (0-10); Urine Color Yellow (Yellow); Urine Specific Gravity 1.012 (1.001-1.035); Urine Urobilinogen < 2.0 EU/DL (0.2-1.0); WBC,Urine <1 /HPF (0-6)
[2019-02-18] MEDS: SODIUM CHLORIDE 0.45% 1,000 ML IV SCH ×2 (09:44→18:01)
[2019-02-18] MEDS ORDERED: diphenhydrAMINE CAP 25 MG CAPSULE PO ONE (11:00)
[2019-02-18] MEDS ORDERED: DIAZEPAM 5 MG TABLET PO ONE (11:00)
[2019-02-18] MEDS ORDERED: MAGNESIUM SULF RIDER 2 GM in PREMIX 1 EACH IV PRN (11:01)
[2019-02-18] MEDS ORDERED: MAGNESIUM SULF RIDER 4 GM in PREMIX 1 EACH IV PRN (11:01)
[2019-02-18] MEDS ORDERED: MIDAZOLAM 2 MG/2 ML VIAL ONE (12:07)
[2019-02-18] MEDS ORDERED: LIDOCAINE 1% 20 ML VIAL ONE (12:07)
[2019-02-18] MEDS ORDERED: HYDROmorphone 2 MG/1 ML VIAL ONE (12:07)
[2019-02-18] MEDS ORDERED: LABETALOL 20 MG/4 ML SYRINGE IV ONE (13:15)
[2019-02-18] MEDS ORDERED: CLOPIDOGREL 300 MG TABLET ONE (13:27)
[2019-02-18 15:19] LABS: Troponin I 5.89 NG/ML (0.00-0.045)
[2019-02-18] MEDS ORDERED: DEXTROSE 50% 25 GM/50 ML VIAL IV PRN (17:43)
[2019-02-18] MEDS ORDERED: GLUCAGON 1 MG VIAL IM PRN (17:43)
[2019-02-18] MEDS: ROSUVASTATIN 20 MG TABLET PO SCH (20:53)
[2019-02-19] MEDS: NITROGLYCERIN 2% OINT 1 INCH/GM PACK TOP SCH ×2 (00:33→05:54)
[2019-02-19] MEDS: ENOXAPARIN 100 MG/ML SYRINGE SUBCUT SCH (01:55)
[2019-02-19] MEDS: SODIUM CHLORIDE 0.45% 1,000 ML IV SCH (04:27)
[2019-02-19 04:44] LABS: Basophils % 0.3 % (0.0-0.8); Eosinophils # 0.2 10*3/uL (0.0-0.87); Eosinophils % 2.6 % (0.00-10.9); Hematocrit 33.4 VOL% (42.0-52.0); Immature Granulocytes % 0.4 %; Immature Granulocytes Absolute 0.03 #; Lymphocytes # 1.8 10*3/uL (1.4-4.0); Mean Corpuscular HGB Conc 29.9 GM/DL (32-36); Mean Corpuscular Volume 79.5 FL (87-102); Mean Platelet Volume 11.5 FL (9.6-12.0); Monocytes % 10.7 % (1.7-12.7); Platelet Count 272 T/CUMM (130-400); Red Cell Distribution Width 17.3 % (9.3-17.3); White Blood Count 6.9 T/CUMM (4-12)
[2019-02-19 05:11] LABS: CKMB % 3.6 %; Calcium 8.3 MG/DL (8.5-10.1); Troponin I 4.34 NG/ML (0.00-0.045)
[2019-02-19] MEDS: INSULIN REGULAR 100 UNIT/ML SUBCUT SCH ×2 (07:59→13:38)
[2019-02-19] MEDS: ASPIRIN EC 81 MG TABLET PO SCH (08:29)
[2019-02-19] MEDS: FINASTERIDE 5 MG TABLET PO SCH (08:29)
[2019-02-19] MEDS: POTASSIUM CHLORIDE 20 MEQ TABLET PO SCH (08:30)
[2019-02-19] MEDS: LOSARTAN 25 MG TABLET PO SCH (08:30)
[2019-02-19] MEDS: CLOPIDOGREL 75 MG TABLET PO SCH (08:30)
[2019-02-19] MEDS: DOCUSATE SODIUM 100 MG CAPSULE PO SCH (08:30)
[2019-02-19] MEDS: CARVEDILOL 25 MG TABLET PO SCH (08:30)
[2019-02-19] MEDS: hydrALAZINE 25 MG TABLET PO SCH (08:30)
[2019-02-19] MEDS: PANTOPRAZOLE 40 MG TABLET PO SCH (08:30)
[2019-02-19] MEDS: POTASSIUM CHLORIDE 20 MEQ TABLET PO PRN (08:33)
[2019-02-19] MEDS ORDERED: ALUM/MAG/SIMETH/LIDO VISC 1:1 30 ML BOTTLE PO ONE (08:58)
[2019-02-19] MEDS ORDERED: FUROSEMIDE 40 MG TABLET PO SCH (09:00)
[2019-02-19] MEDS ORDERED: SPIRONOLACTONE 25 MG TABLET PO SCH (09:00)
[2019-02-19] MEDS: FUROSEMIDE 40 MG/4 ML VIAL IV SCH (09:23)
[2019-02-19 12:29] VITALS: BP 158/80
== END 2019-02-19 14:15 | disposition home health service (06) | DRG 246 ==
LOC: N.ED 05:12 → N.EDINP 05:12 → N.TELES 15:22 → SUATTDRO 16:52
PROVIDERS: ADMIT Family Medicine; ATTEND Internal Medicine Cardiovascular Disease

== ENCOUNTER 2019-02-24 11:58 | Inpatient (IN) ==
[2019-02-24 12:45] LABS: Basophils % 0.4 % (0.0-0.8); Eosinophils # 0.2 10*3/uL (0.0-0.87); Eosinophils % 2.3 % (0.00-10.9); Hematocrit 40.6 VOL% (42.0-52.0); Hemoglobin 12.2 GM/DL (14.0-18.0); Immature Granulocytes % 0.3 %; Immature Granulocytes Absolute 0.02 #; Lymphocytes # 1.8 10*3/uL (1.4-4.0); Lymphocytes % 23.7 % (21.2-54.2); Mean Corpuscular Volume 78.7 FL (87-102); Monocytes % 10.5 % (1.7-12.7); Neutrophils % 62.8 % (38.7-73.9); Platelet Count 300 T/CUMM (130-400); Red Blood Count 5.16 MC/CUMM (3.8-5.5); Red Cell Distribution Width 17.7 % (9.3-17.3); White Blood Count 7.7 T/CUMM (4-12)
[2019-02-24 12:52] LABS: Albumin 3.7 G/DL (3.4-5.0); Bilirubin,Total 0.6 MG/DL (0.2-1.0); Calcium 8.8 MG/DL (8.5-10.1); Osmolality,Calculated 278.4 MOS/KG (273-304); Total Protein 6.8 G/DL (6.4-8.3)
[2019-02-24] MEDS ORDERED: ASPIRIN 325 MG TABLET PO STA (14:39)
[2019-02-24] MEDS ORDERED: NITROGLYCERIN 2% OINT 1 INCH/GM PACK TOP STA (14:39)
[2019-02-24] MEDS ORDERED: MORPHINE 4 MG/1 ML VIAL IV STA (14:39)
[2019-02-24] MEDS ORDERED: ONDANSETRON 4 MG/2 ML VIAL IV STA (14:39)
[2019-02-24] MEDS ORDERED: ALUM/MAG/SIMETH/LIDO VISC 1:1 30 ML BOTTLE PO STA (14:39)
[2019-02-24] MEDS ORDERED: ONDANSETRON 4 MG/2 ML VIAL IV PRN (15:29)
[2019-02-24] MEDS ORDERED: MAGNESIUM SULF RIDER 4 GM in PREMIX 1 EACH IV PRN (15:29)
[2019-02-24] MEDS ORDERED: MAGNESIUM SULF RIDER 2 GM in PREMIX 1 EACH IV PRN (15:29)
[2019-02-24] MEDS ORDERED: MORPHINE 4 MG/1 ML VIAL IV PRN (15:29)
[2019-02-24] MEDS ORDERED: diphenhydrAMINE CAP 25 MG CAPSULE PO PRN (15:29)
[2019-02-24] MEDS ORDERED: POTASSIUM CHLORIDE 20 MEQ TABLET PO PRN (15:29)
[2019-02-24] MEDS ORDERED: guaiFENesin/DM ER 600-30 MG TABLET PO PRN (15:29)
[2019-02-24] MEDS ORDERED: ZALEPLON 5 MG CAPSULE PO PRN (15:29)
[2019-02-24] MEDS ORDERED: DOCUSATE SODIUM 100 MG CAPSULE PO PRN (15:29)
[2019-02-24] MEDS ORDERED: PROMETHAZINE 25 MG TABLET PO PRN (15:29)
[2019-02-24] MEDS ORDERED: LACTULOSE 20 GM/30 ML UDCUP PO PRN (15:29)
[2019-02-24] MEDS ORDERED: NITROGLYCERIN SL 0.4 MG TABLET SL PRN (15:31)
[2019-02-24] MEDS ORDERED: ALUMINUM/MAGNES/SIMETH MAX STR 30 ML UDCUP PO PRN (15:43)
[2019-02-24] MEDS ORDERED: metFORMIN 500 MG TABLET PO SCH (17:00)
[2019-02-24] MEDS ORDERED: hydrALAZINE 25 MG TABLET PO SCH (21:00)
[2019-02-24] MEDS: INSULIN LISPRO 100 UNIT/ML SUBCUT SCH (22:48)
[2019-02-24] MEDS: ENOXAPARIN 100 MG/ML SYRINGE SUBCUT SCH (22:50)
[2019-02-24] MEDS: FERROUS SULFATE 325 MG TABLET PO SCH (22:51)
[2019-02-24] MEDS: DOCUSATE SODIUM 100 MG CAPSULE PO SCH (22:51)
[2019-02-24] MEDS: ROSUVASTATIN 20 MG TABLET PO SCH (22:51)
[2019-02-24] MEDS: CARVEDILOL 25 MG TABLET PO SCH (22:51)
[2019-02-24] MEDS: PANTOPRAZOLE 40 MG TABLET PO SCH (22:51)
[2019-02-25 05:19] LABS: CKMB % 11.2 %; Calcium 8.8 MG/DL (8.5-10.1); Osmolality,Calculated 282.3 MOS/KG (273-304)
[2019-02-25 05:36] LABS: Troponin I 31.3 NG/ML (0.00-0.045)
[2019-02-25] MEDS ORDERED: MAGNESIUM SULF RIDER 2 GM in PREMIX 1 EACH IV PRN (07:37)
[2019-02-25] MEDS ORDERED: POTASSIUM CHLORIDE RIDER 10 MEQ in PREMIX 1 EACH IV PRN (07:37)
[2019-02-25] MEDS ORDERED: diphenhydrAMINE CAP 25 MG CAPSULE PO ONE (07:37)
[2019-02-25] MEDS ORDERED: DIAZEPAM 5 MG TABLET PO ONE (07:37)
[2019-02-25] MEDS: TIROFIBAN 5,000 MCG/100 ML PREMIX IV SCH ×2 (07:55→12:34)
[2019-02-25] MEDS ORDERED: SODIUM CHLORIDE 0.45% 1,000 ML IV SCH (08:00)
[2019-02-25] MEDS ORDERED: hydrALAZINE 25 MG TABLET PO SCH ×2 (09:00)
[2019-02-25] MEDS ORDERED: LOSARTAN 25 MG TABLET PO SCH (09:00)
[2019-02-25] MEDS ORDERED: LOSARTAN 50 MG TABLET PO SCH (09:00)
[2019-02-25] MEDS ORDERED: FUROSEMIDE 40 MG TABLET PO SCH (09:00)
[2019-02-25] MEDS: INSULIN LISPRO 100 UNIT/ML SUBCUT SCH ×4 (09:49→21:09)
[2019-02-25] MEDS: DOCUSATE SODIUM 100 MG CAPSULE PO SCH ×2 (10:01→21:08)
[2019-02-25] MEDS: ASPIRIN EC 81 MG TABLET PO SCH (10:01)
[2019-02-25] MEDS: CLOPIDOGREL 75 MG TABLET PO SCH (10:01)
[2019-02-25] MEDS: POLYETHYLENE GLYCOL POWDER 17 GM PACK PO SCH (10:01)
[2019-02-25] MEDS: POTASSIUM CHLORIDE 20 MEQ TABLET PO SCH (10:02)
[2019-02-25] MEDS: PANTOPRAZOLE 40 MG TABLET PO SCH ×2 (10:02→21:08)
[2019-02-25] MEDS: CARVEDILOL 25 MG TABLET PO SCH ×2 (10:02→18:19)
[2019-02-25] MEDS: FINASTERIDE 5 MG TABLET PO SCH (10:02)
[2019-02-25] MEDS: FERROUS SULFATE 325 MG TABLET PO SCH ×3 (10:02→21:08)
[2019-02-25] MEDS: ENOXAPARIN 100 MG/ML SYRINGE SUBCUT SCH (10:03)
[2019-02-25] MEDS ORDERED: MIDAZOLAM 2 MG/2 ML VIAL ONE (13:04)
[2019-02-25] MEDS ORDERED: HYDROmorphone 2 MG/1 ML VIAL ONE (13:04)
[2019-02-25] MEDS ORDERED: LIDOCAINE 1% 20 ML VIAL ONE (13:06)
[2019-02-25] MEDS: SODIUM CHLORIDE 0.45% 1,000 ML IV SCH (14:00)
[2019-02-25] MEDS: amLODIPine 5 MG TABLET PO SCH (15:40)
[2019-02-25] MEDS: ENOXAPARIN 40 MG/0.4 ML SYRINGE SUBCUT SCH (18:20)
[2019-02-25] MEDS: ROSUVASTATIN 20 MG TABLET PO SCH (21:08)
[2019-02-26 04:47] LABS: Basophils % 0.5 % (0.0-0.8); Eosinophils # 0.2 10*3/uL (0.0-0.87); Eosinophils % 2.8 % (0.00-10.9); Hematocrit 38.3 VOL% (42.0-52.0); Hemoglobin 11.5 GM/DL (14.0-18.0); Immature Granulocytes % 0.5 %; Immature Granulocytes Absolute 0.03 #; Lymphocytes # 1.5 10*3/uL (1.4-4.0); Lymphocytes % 23.4 % (21.2-54.2); Mean Corpuscular Volume 79.1 FL (87-102); Mean Platelet Volume 10.5 FL (9.6-12.0); Monocytes % 10.4 % (1.7-12.7); Neutrophils % 62.4 % (38.7-73.9); Platelet Count 254 T/CUMM (130-400); Red Blood Count 4.84 MC/CUMM (3.8-5.5); Red Cell Distribution Width 17.2 % (9.3-17.3); White Blood Count 6.5 T/CUMM (4-12)
[2019-02-26 04:56] LABS: Calcium 8.5 MG/DL (8.5-10.1); Osmolality,Calculated 281.4 MOS/KG (273-304)
[2019-02-26] MEDS: ENOXAPARIN 40 MG/0.4 ML SYRINGE SUBCUT SCH (06:19)
[2019-02-26] MEDS: CLOPIDOGREL 75 MG TABLET PO SCH (09:19)
[2019-02-26] MEDS: INSULIN LISPRO 100 UNIT/ML SUBCUT SCH ×2 (09:19→12:02)
[2019-02-26] MEDS: FERROUS SULFATE 325 MG TABLET PO SCH (09:19)
[2019-02-26] MEDS: PANTOPRAZOLE 40 MG TABLET PO SCH (09:19)
[2019-02-26] MEDS: amLODIPine 5 MG TABLET PO SCH (09:20)
[2019-02-26] MEDS: ASPIRIN EC 81 MG TABLET PO SCH (09:20)
[2019-02-26] MEDS: FINASTERIDE 5 MG TABLET PO SCH (09:20)
[2019-02-26] MEDS: CARVEDILOL 25 MG TABLET PO SCH (09:20)
[2019-02-26] MEDS: DOCUSATE SODIUM 100 MG CAPSULE PO SCH (09:20)
[2019-02-26] MEDS: POTASSIUM CHLORIDE 20 MEQ TABLET PO SCH (09:20)
[2019-02-26] MEDS: SODIUM CHLORIDE 0.45% 1,000 ML IV SCH (09:21)
[2019-02-26] MEDS ORDERED: amLODIPine 5 MG TABLET PO ONE (09:39)
[2019-02-26] MEDS: POLYETHYLENE GLYCOL POWDER 17 GM PACK PO SCH ×2 (09:51→09:52)
[2019-02-26] MEDS ORDERED: ISOSORBIDE MONONITRATE 30 MG TABLET PO SCH (11:04)
[2019-02-26 12:13] VITALS: BP 148/78
[2019-02-27] MEDS ORDERED: amLODIPine 10 MG TABLET PO SCH (09:00)
== END 2019-02-26 14:50 | disposition home health service (06) | DRG 281 ==
LOC: N.EDINP 11:58 → N.ED 11:58 → N.TELEN 19:50
PROVIDERS: ADMIT Internal Medicine Cardiovascular Disease; ATTEND Internal Medicine Cardiovascular Disease
PROC: CLCCHCL (ICD-10-PCS; 2019-02-25 12:45)

== ENCOUNTER 2019-02-27 01:04 | Inpatient (IN) ==
[2019-02-27] MEDS ORDERED: ASPIRIN 325 MG TABLET PO STA (01:23)
[2019-02-27] MEDS ORDERED: HEPARIN 1,000 UNIT/1 ML VIAL IV STA (01:25)
[2019-02-27] MEDS ORDERED: HEPARIN 5,000 UNIT/1 ML VIAL ONE ×2 (01:31→09:51)
[2019-02-27 01:38] LABS: Basophils % 0.4 % (0.0-0.8); Eosinophils # 0.2 10*3/uL (0.0-0.87); Eosinophils % 2.6 % (0.00-10.9); Hematocrit 40.2 VOL% (42.0-52.0); Hemoglobin 12.1 GM/DL (14.0-18.0); Immature Granulocytes % 0.6 %; Immature Granulocytes Absolute 0.05 #; Lymphocytes # 2.3 10*3/uL (1.4-4.0); Mean Corpuscular HGB Conc 30.1 GM/DL (32-36); Mean Corpuscular Volume 79.4 FL (87-102); Mean Platelet Volume 11.2 FL (9.6-12.0); Monocytes % 11.2 % (1.7-12.7); Neutrophils % 59.2 % (38.7-73.9); Platelet Count 290 T/CUMM (130-400); Red Blood Count 5.06 MC/CUMM (3.8-5.5); Red Cell Distribution Width 17.5 % (9.3-17.3)
[2019-02-27] MEDS: NITROGLYCERIN DRIP 50 MG/250 ML BOTTLE IV SCH ×2 (01:45→08:18)
[2019-02-27 01:59] LABS: Alanine Aminotransferase 18 U/L (16-61); Albumin 3.6 G/DL (3.4-5.0); Alkaline Phosphatase 100 U/L (45-117); Aspartate Amino Transferase 28 U/L (0-37); Bilirubin,Total < 0.39 MG/DL (0.2-1.0); Blood Urea Nitrogen 22 MG/DL (7-18); Calcium 9.3 MG/DL (8.5-10.1); Glucose 105 MG/DL (74-106); Osmolality,Calculated 283.3 MOS/KG (273-304); Total Protein 7.9 G/DL (6.4-8.3)
[2019-02-27] MEDS ORDERED: LIDOCAINE 1%/EPI INJ 20 ML VIAL ONE (02:01)
[2019-02-27] MEDS ORDERED: MIDAZOLAM 2 MG/2 ML VIAL ONE ×2 (02:01→09:37)
[2019-02-27] MEDS ORDERED: HEPARIN/NACL 0.9% 2 UNITS/ML 1,000 ML IV ONE (02:01)
[2019-02-27] MEDS ORDERED: fentaNYL 100 MCG/2 ML VIAL ONE (02:01)
[2019-02-27] MEDS ORDERED: TICAGRELOR 90 MG TABLET ONE (02:31)
[2019-02-27] MEDS ORDERED: TIROFIBAN 5,000 MCG/100 ML PREMIX IV ONE (02:33)
[2019-02-27] MEDS ORDERED: MAGNESIUM SULF RIDER 2 GM in PREMIX 1 EACH IV PRN ×3 (03:29→08:48)
[2019-02-27] MEDS ORDERED: MAGNESIUM SULF RIDER 4 GM in PREMIX 1 EACH IV PRN (03:29)
[2019-02-27] MEDS ORDERED: MORPHINE 4 MG/1 ML VIAL IV PRN (03:30)
[2019-02-27] MEDS ORDERED: POTASSIUM CHLORIDE 20 MEQ TABLET PO PRN (03:30)
[2019-02-27] MEDS: SODIUM CHLORIDE 0.45% 1,000 ML IV SCH ×2 (03:53→17:16)
[2019-02-27 04:10] LABS: Basophils % 0.2 % (0.0-0.8); Eosinophils # 0.1 10*3/uL (0.0-0.87); Eosinophils % 1.1 % (0.00-10.9); Hematocrit 38.5 VOL% (42.0-52.0); Hemoglobin 11.7 GM/DL (14.0-18.0); Immature Granulocytes % 0.3 %; Immature Granulocytes Absolute 0.03 #; Lymphocytes # 1.5 10*3/uL (1.4-4.0); Lymphocytes % 15.5 % (21.2-54.2); Mean Corpuscular HGB Conc 30.4 GM/DL (32-36); Mean Corpuscular Volume 79.4 FL (87-102); Mean Platelet Volume 11.1 FL (9.6-12.0); Monocytes % 7.3 % (1.7-12.7); Neutrophils % 75.6 % (38.7-73.9); Platelet Count 253 T/CUMM (130-400); Red Blood Count 4.85 MC/CUMM (3.8-5.5); Red Cell Distribution Width 17.4 % (9.3-17.3); White Blood Count 9.5 T/CUMM (4-12)
[2019-02-27 05:12] LABS: Alanine Aminotransferase 17 U/L (16-61); Alkaline Phosphatase 93 U/L (45-117); Aspartate Amino Transferase 33 U/L (0-37); Bilirubin,Total < 0.39 MG/DL (0.2-1.0); Blood Urea Nitrogen 21 MG/DL (7-18); Calcium 8.9 MG/DL (8.5-10.1); Glucose 114 MG/DL (74-106); Osmolality,Calculated 280.5 MOS/KG (273-304)
[2019-02-27] MEDS ORDERED: TICAGRELOR 90 MG TABLET PO ONE (08:11)
[2019-02-27] MEDS: ASPIRIN EC 81 MG TABLET PO SCH (08:18)
[2019-02-27] MEDS: METOPROLOL TARTRATE 25 MG TABLET PO SCH ×2 (08:23→21:18)
[2019-02-27] MEDS: PANTOPRAZOLE 40 MG TABLET PO SCH (08:23)
[2019-02-27] MEDS ORDERED: POTASSIUM CHLORIDE RIDER 10 MEQ in PREMIX 1 EACH IV PRN (08:48)
[2019-02-27] MEDS ORDERED: diphenhydrAMINE CAP 25 MG CAPSULE PO ONE (08:48)
[2019-02-27] MEDS ORDERED: DIAZEPAM 5 MG TABLET PO ONE (08:48)
[2019-02-27] MEDS ORDERED: VERAPAMIL 5 MG/2 ML VIAL ONE (09:37)
[2019-02-27] MEDS ORDERED: HYDROmorphone 2 MG/1 ML VIAL ONE (09:37)
[2019-02-27] MEDS ORDERED: ZALEPLON 5 MG CAPSULE PO PRN (10:35)
[2019-02-27] MEDS ORDERED: NITROGLYCERIN SL 0.4 MG TABLET SL PRN (10:35)
[2019-02-27] MEDS ORDERED: diphenhydrAMINE CAP 25 MG CAPSULE PO PRN (12:29)
[2019-02-27] MEDS ORDERED: MAGNESIUM HYDROXIDE SUSP 30 ML UDCUP PO PRN (12:30)
[2019-02-27 13:17] LABS: CKMB % 10.7 %
[2019-02-27 13:18] LABS: Troponin I 14.2 NG/ML (0.00-0.045)
[2019-02-27] MEDS: ISOSORBIDE MONONITRATE 30 MG TABLET PO SCH (13:35)
[2019-02-27] MEDS: FINASTERIDE 5 MG TABLET PO SCH (13:35)
[2019-02-27] MEDS: TICAGRELOR 90 MG TABLET PO SCH ×2 (15:42→21:18)
[2019-02-27] MEDS: FERROUS SULFATE 325 MG TABLET PO SCH ×2 (15:42→21:18)
[2019-02-27] MEDS ORDERED: ATORVASTATIN 20 MG TABLET PO SCH (21:00)
[2019-02-27] MEDS: DOCUSATE SODIUM 100 MG CAPSULE PO SCH (21:18)
[2019-02-27] MEDS: ONDANSETRON 4 MG/2 ML VIAL IV PRN (23:15)
[2019-02-28] MEDS: NITROGLYCERIN DRIP 50 MG/250 ML BOTTLE IV SCH (04:54)
[2019-02-28 05:47] LABS: Basophils % 0.4 % (0.0-0.8); Eosinophils # 0.2 10*3/uL (0.0-0.87); Eosinophils % 2.5 % (0.00-10.9); Hematocrit 36.1 VOL% (42.0-52.0); Immature Granulocytes % 0.4 %; Immature Granulocytes Absolute 0.03 #; Lymphocytes # 1.6 10*3/uL (1.4-4.0); Lymphocytes % 20.1 % (21.2-54.2); Mean Corpuscular HGB Conc 30.5 GM/DL (32-36); Mean Corpuscular Volume 78.5 FL (87-102); Mean Platelet Volume 11.6 FL (9.6-12.0); Monocytes % 10.9 % (1.7-12.7); Neutrophils % 65.7 % (38.7-73.9); Platelet Count 239 T/CUMM (130-400); Red Cell Distribution Width 17.3 % (9.3-17.3); White Blood Count 7.9 T/CUMM (4-12)
[2019-02-28 06:05] LABS: Calcium 8.7 MG/DL (8.5-10.1); Osmolality,Calculated 275.5 MOS/KG (273-304)
[2019-02-28 06:08] LABS: CKMB % 4.3 %
[2019-02-28 06:11] LABS: Troponin I 11.5 NG/ML (0.00-0.045)
[2019-02-28] MEDS: ONDANSETRON 4 MG/2 ML VIAL IV PRN ×2 (06:12→09:41)
[2019-02-28 06:58] VITALS: BP 156/65
[2019-02-28] MEDS: SODIUM CHLORIDE 0.45% 1,000 ML IV SCH (08:05)
[2019-02-28] MEDS ORDERED: ROSUVASTATIN 20 MG TABLET PO SCH (09:32)
[2019-02-28] MEDS ORDERED: CARVEDILOL 12.5 MG TABLET PO SCH (09:33)
[2019-02-28] MEDS: PANTOPRAZOLE 40 MG TABLET PO SCH (09:41)
[2019-02-28] MEDS: ASPIRIN EC 81 MG TABLET PO SCH (09:41)
[2019-02-28] MEDS: FERROUS SULFATE 325 MG TABLET PO SCH (09:43)
[2019-02-28] MEDS: TICAGRELOR 90 MG TABLET PO SCH (09:43)
[2019-02-28] MEDS: FINASTERIDE 5 MG TABLET PO SCH (09:43)
[2019-02-28] MEDS: DOCUSATE SODIUM 100 MG CAPSULE PO SCH (09:43)
[2019-02-28] MEDS: METOPROLOL TARTRATE 25 MG TABLET PO SCH (10:09)
[2019-02-28] MEDS: ISOSORBIDE MONONITRATE 30 MG TABLET PO SCH (10:09)
== END 2019-02-28 13:55 | disposition home health service (06) | DRG 248 ==
LOC: EDBD → EDUNIT# → N.ED 01:04 → N.CC 03:05
PROVIDERS: ADMIT Internal Medicine Interventional Cardiology; ATTEND Internal Medicine Interventional Cardiology
PROC: CLCCHCL (ICD-10-PCS; 2019-02-27 02:15)

== ENCOUNTER 2019-04-14 05:34 | Inpatient (IN) ==
[2019-04-14] MEDS ORDERED: SODIUM CHLORIDE 0.9% 1,000 ML IV STA (06:20)
[2019-04-14 06:34] LABS: Basophils % 0.5 % (0.0-0.8); Eosinophils # 0.2 10*3/uL (0.0-0.87); Eosinophils % 3.4 % (0.00-10.9); Hematocrit 36.3 VOL% (42.0-52.0); Immature Granulocytes % 0.3 %; Immature Granulocytes Absolute 0.02 #; Lymphocytes # 1.6 10*3/uL (1.4-4.0); Mean Corpuscular HGB Conc 30.3 GM/DL (32-36); Mean Corpuscular Volume 79.4 FL (87-102); Mean Platelet Volume 10.3 FL (9.6-12.0); Monocytes % 8.9 % (1.7-12.7); Neutrophils % 59.9 % (38.7-73.9); Platelet Count 205 T/CUMM (130-400); Red Blood Count 4.57 MC/CUMM (3.8-5.5); Red Cell Distribution Width 17.5 % (9.3-17.3)
[2019-04-14 06:38] LABS: Bacteria,Urine Occasional /HPF (Few); Mucus,Urine Few /LPF (Occasional); RBC,Urine 51077 /HPF (0-4)
[2019-04-14 06:39] LABS: Apearance,Urine Cloudy (Clear); Bilirubin,Urine Negative (Negative); Glucose,Urine (UA) 150 mg/dL (Negative); Ketones,Urine Negative (Negative); Nitrite,Urine Negative (Negative); Protein,Urine >500 MG/DL; Urine Color Red (Yellow)
[2019-04-14 06:40] LABS: Blood, Urine Large mg/dL (Negative); Urine Urobilinogen 0.2 EU/DL (0.2-1.0)
[2019-04-14 06:43] LABS: PT Patient Result 10.9 SECS
[2019-04-14 07:00] LABS: Alanine Aminotransferase 12 U/L (16-61); Albumin 3.3 G/DL (3.4-5.0); Alkaline Phosphatase 79 U/L (45-117); Aspartate Amino Transferase 12 U/L (0-37); Bilirubin,Total < 0.39 MG/DL (0.2-1.0); Blood Urea Nitrogen 13 MG/DL (7-18); Calcium 9.2 MG/DL (8.5-10.1); Glucose 93 MG/DL (74-106); Total Protein 6.9 G/DL (6.4-8.3)
[2019-04-14] MEDS ORDERED: ONDANSETRON 4 MG/2 ML VIAL IV PRN (09:35)
[2019-04-14] MEDS ORDERED: GLUCAGON 1 MG VIAL IM PRN (09:35)
[2019-04-14] MEDS ORDERED: ACETAMINOPHEN 325 MG TABLET PO PRN (09:35)
[2019-04-14] MEDS ORDERED: DEXTROSE 50% 25 GM/50 ML VIAL IV PRN (09:35)
[2019-04-14 10:27] LABS: Thyroid Stimulating Hormone 1.56 uIU/ml (0.358-3.74)
[2019-04-14] MEDS ORDERED: LIDOCAINE 2% TOP JELLY 20 ML VIAL INTRAURETH ONE (16:16)
[2019-04-14] MEDS: INSULIN LISPRO 100 UNIT/ML SUBCUT SCH ×3 (16:53→20:39)
[2019-04-14] MEDS: hydrALAZINE 25 MG TABLET PO SCH (20:34)
[2019-04-14] MEDS: ROSUVASTATIN 20 MG TABLET PO SCH (20:34)
[2019-04-14] MEDS: CARVEDILOL 25 MG TABLET PO SCH (20:34)
[2019-04-14] MEDS ORDERED: TICAGRELOR 90 MG TABLET PO SCH (21:00)
[2019-04-15 06:52] LABS: Basophils % 0.6 % (0.0-0.8); Eosinophils # 0.2 10*3/uL (0.0-0.87); Hematocrit 37.8 VOL% (42.0-52.0); Immature Granulocytes % 0.3 %; Immature Granulocytes Absolute 0.02 #; Lymphocytes # 1.5 10*3/uL (1.4-4.0); Lymphocytes % 21.5 % (21.2-54.2); Mean Corpuscular Volume 80.1 FL (87-102); Mean Platelet Volume 10.8 FL (9.6-12.0); Monocytes % 9.5 % (1.7-12.7); Neutrophils % 65.1 % (38.7-73.9); Platelet Count 206 T/CUMM (130-400); Red Blood Count 4.72 MC/CUMM (3.8-5.5); Red Cell Distribution Width 17.8 % (9.3-17.3); White Blood Count 7.1 T/CUMM (4-12)
[2019-04-15 06:53] LABS: Hemoglobin 11.7 GM/DL (14.0-18.0)
[2019-04-15] MEDS: INSULIN LISPRO 100 UNIT/ML SUBCUT SCH ×4 (08:41→21:16)
[2019-04-15 08:48] LABS: Calcium 8.6 MG/DL (8.5-10.1); Osmolality,Calculated 280.3 MOS/KG (273-304)
[2019-04-15] MEDS ORDERED: ASPIRIN EC 81 MG TABLET PO SCH (09:00)
[2019-04-15] MEDS ORDERED: FINASTERIDE 5 MG TABLET PO SCH (09:00)
[2019-04-15] MEDS: hydrALAZINE 25 MG TABLET PO SCH ×2 (09:01→21:13)
[2019-04-15] MEDS: CARVEDILOL 25 MG TABLET PO SCH ×2 (09:01→21:13)
[2019-04-15] MEDS: amLODIPine 10 MG TABLET PO SCH (09:02)
[2019-04-15] MEDS: PANTOPRAZOLE 40 MG TABLET PO SCH (09:02)
[2019-04-15] MEDS: POTASSIUM CHLORIDE 20 MEQ TABLET PO SCH (09:02)
[2019-04-15] MEDS: ISOSORBIDE MONONITRATE 30 MG TABLET PO SCH (09:02)
[2019-04-15] MEDS: DOCUSATE SODIUM 100 MG CAPSULE PO PRN (11:43)
[2019-04-15] MEDS: ROSUVASTATIN 20 MG TABLET PO SCH (21:13)
[2019-04-16 07:20] LABS: Basophils % 0.4 % (0.0-0.8); Eosinophils # 0.2 10*3/uL (0.0-0.87); Eosinophils % 2.5 % (0.00-10.9); Hematocrit 36.4 VOL% (42.0-52.0); Hemoglobin 11.3 GM/DL (14.0-18.0); Immature Granulocytes % 0.4 %; Immature Granulocytes Absolute 0.03 #; Lymphocytes # 1.6 10*3/uL (1.4-4.0); Lymphocytes % 22.6 % (21.2-54.2); Mean Corpuscular Volume 79.3 FL (87-102); Mean Platelet Volume 10.7 FL (9.6-12.0); Monocytes % 9.1 % (1.7-12.7); Platelet Count 197 T/CUMM (130-400); Red Blood Count 4.59 MC/CUMM (3.8-5.5); Red Cell Distribution Width 17.6 % (9.3-17.3); White Blood Count 7.3 T/CUMM (4-12)
[2019-04-16 07:36] LABS: Calcium 8.7 MG/DL (8.5-10.1); Osmolality,Calculated 280.3 MOS/KG (273-304)
[2019-04-16] MEDS: hydrALAZINE 25 MG TABLET PO SCH ×2 (09:20→20:38)
[2019-04-16] MEDS: CARVEDILOL 25 MG TABLET PO SCH ×2 (09:20→20:37)
[2019-04-16] MEDS: amLODIPine 10 MG TABLET PO SCH (09:20)
[2019-04-16] MEDS: PANTOPRAZOLE 40 MG TABLET PO SCH (09:20)
[2019-04-16] MEDS: DUTASTERIDE 0.5 MG CAPSULE PO SCH (09:20)
[2019-04-16] MEDS: ISOSORBIDE MONONITRATE 30 MG TABLET PO SCH (09:20)
[2019-04-16] MEDS: POTASSIUM CHLORIDE 20 MEQ TABLET PO SCH (09:20)
[2019-04-16] MEDS: MAGNESIUM HYDROXIDE SUSP 30 ML UDCUP PO PRN (09:24)
[2019-04-16] MEDS: INSULIN LISPRO 100 UNIT/ML SUBCUT SCH ×4 (10:00→22:15)
[2019-04-16] MEDS: ROSUVASTATIN 20 MG TABLET PO SCH (20:37)
[2019-04-17 04:56] LABS: Basophils % 0.6 % (0.0-0.8); Eosinophils # 0.3 10*3/uL (0.0-0.87); Eosinophils % 3.6 % (0.00-10.9); Hematocrit 36.7 VOL% (42.0-52.0); Hemoglobin 11.2 GM/DL (14.0-18.0); Immature Granulocytes % 0.4 %; Immature Granulocytes Absolute 0.03 #; Lymphocytes % 29.1 % (21.2-54.2); Mean Corpuscular HGB Conc 30.5 GM/DL (32-36); Mean Corpuscular Volume 79.6 FL (87-102); Mean Platelet Volume 10.7 FL (9.6-12.0); Monocytes % 9.5 % (1.7-12.7); Neutrophils % 56.8 % (38.7-73.9); Platelet Count 200 T/CUMM (130-400); Red Blood Count 4.61 MC/CUMM (3.8-5.5); Red Cell Distribution Width 17.8 % (9.3-17.3); White Blood Count 6.9 T/CUMM (4-12)
[2019-04-17 05:17] LABS: Hypochromasia 1+; Ovalocytes Slight; Platelet Estimate Adequate
[2019-04-17 05:19] LABS: Calcium 9.3 MG/DL (8.5-10.1); Osmolality,Calculated 284.1 MOS/KG (273-304)
[2019-04-17] MEDS: INSULIN LISPRO 100 UNIT/ML SUBCUT SCH ×4 (08:23→21:00)
[2019-04-17] MEDS: CARVEDILOL 25 MG TABLET PO SCH ×2 (11:04→21:39)
[2019-04-17] MEDS: hydrALAZINE 25 MG TABLET PO SCH ×2 (11:04→21:39)
[2019-04-17] MEDS: amLODIPine 10 MG TABLET PO SCH (11:04)
[2019-04-17] MEDS: DUTASTERIDE 0.5 MG CAPSULE PO SCH (11:04)
[2019-04-17] MEDS: PANTOPRAZOLE 40 MG TABLET PO SCH (11:04)
[2019-04-17] MEDS: POTASSIUM CHLORIDE 20 MEQ TABLET PO SCH (11:04)
[2019-04-17] MEDS: ISOSORBIDE MONONITRATE 30 MG TABLET PO SCH (11:04)
[2019-04-17] MEDS: MAGNESIUM HYDROXIDE SUSP 30 ML UDCUP PO PRN (11:07)
[2019-04-17] MEDS ORDERED: BISACODYL 10 MG SUPP RECTAL PRN (16:01)
[2019-04-17] MEDS: ROSUVASTATIN 20 MG TABLET PO SCH (21:39)
[2019-04-18 04:37] LABS: Basophils % 0.4 % (0.0-0.8); Eosinophils # 0.4 10*3/uL (0.0-0.87); Hematocrit 36.5 VOL% (42.0-52.0); Immature Granulocytes % 0.1 %; Immature Granulocytes Absolute 0.01 #; Lymphocytes # 1.9 10*3/uL (1.4-4.0); Lymphocytes % 26.5 % (21.2-54.2); Mean Corpuscular HGB Conc 30.1 GM/DL (32-36); Mean Platelet Volume 10.4 FL (9.6-12.0); Platelet Count 215 T/CUMM (130-400); Red Blood Count 4.56 MC/CUMM (3.8-5.5); Red Cell Distribution Width 17.6 % (9.3-17.3)
[2019-04-18 05:16] LABS: Calcium 9.5 MG/DL (8.5-10.1); Osmolality,Calculated 279.5 MOS/KG (273-304)
[2019-04-18] MEDS: INSULIN LISPRO 100 UNIT/ML SUBCUT SCH ×2 (08:13→11:17)
[2019-04-18] MEDS: ISOSORBIDE MONONITRATE 30 MG TABLET PO SCH (08:42)
[2019-04-18] MEDS: hydrALAZINE 25 MG TABLET PO SCH (08:43)
[2019-04-18] MEDS: CARVEDILOL 25 MG TABLET PO SCH (08:43)
[2019-04-18] MEDS: DUTASTERIDE 0.5 MG CAPSULE PO SCH (08:43)
[2019-04-18] MEDS: amLODIPine 10 MG TABLET PO SCH (08:44)
[2019-04-18] MEDS: PANTOPRAZOLE 40 MG TABLET PO SCH (08:44)
[2019-04-18] MEDS: POTASSIUM CHLORIDE 20 MEQ TABLET PO SCH (08:44)
[2019-04-18] MEDS: DOCUSATE SODIUM 100 MG CAPSULE PO PRN (08:44)
[2019-04-18 12:30] VITALS: BP 128/68
== END 2019-04-18 13:58 | disposition home health service (06) | DRG 813 ==
LOC: N.ED 05:34 → SUATTDRO 08:16 → N.EDINP 08:16 → N.4E 16:05
PROVIDERS: ADMIT Family Medicine; ATTEND Family Medicine

== ENCOUNTER 2022-09-14 11:09 | Inpatient (IN) ==
[2022-09-14] MEDS ORDERED: SODIUM CHLORIDE 0.9% 1,000 ML IV STA (11:25)
[2022-09-14 11:47] LABS: Basophils % 0.3 % (0.0-0.8); Eosinophils # 0.1 10*3/uL (0.0-0.87); Eosinophils % 1.4 % (0.00-10.9); Hematocrit 39.8 VOL% (42.0-52.0); Hemoglobin 12.5 GM/DL (14.0-18.0); Immature Granulocytes % 0.3 %; Immature Granulocytes Absolute 0.03 #; Lymphocytes # 1.7 10*3/uL (1.4-4.0); Lymphocytes % 19.9 % (21.2-54.2); Mean Corpuscular HGB Conc 31.4 GM/DL (32-36); Mean Corpuscular Volume 78.8 FL (87-102); Mean Platelet Volume 10.5 FL (9.6-12.0); Monocytes # 0.8 10*3/uL (0.11-0.8); Monocytes % 8.6 % (1.7-12.7); Neutrophils % 69.5 % (38.7-73.9); Platelet Count 240 T/CUMM (130-400); Red Blood Count 5.05 MC/CUMM (3.8-5.5); Red Cell Distribution Width 18.6 % (9.3-17.3); White Blood Count 8.8 T/CUMM (4-12)
[2022-09-14 12:01] LABS: PT Patient Result 11.4 SECS (10.1-12.1); Partial Thromboplastin Time 28.9 SECS (23.7-32.9)
[2022-09-14 12:07] LABS: Albumin 3.4 G/DL (3.4-5.0); Bilirubin,Total 0.4 MG/DL (0.20-1.00); Calcium 9.4 MG/DL (8.5-10.1); Osmolality,Calculated 287.3 MOS/KG (273-304); Potassium 3.6 MMOL/L (3.5-5.1); Total Protein 7.6 G/DL (6.4-8.2)
[2022-09-14] MEDS ORDERED: LEVOFLOXACIN INJ 500 MG/100 ML PREMIX IV STA (13:59)
[2022-09-14 14:02] LABS: Bacteria,Urine Occasional /HPF (Few); Mucus,Urine Occasional /LPF (Occasional); RBC,Urine 2 /HPF (0-4); Squamous Epithelial Cell,Urine Occasional /HPF (0-10)
[2022-09-14 14:03] LABS: Bilirubin,Urine Negative (Negative); Blood, Urine Negative (Negative); Glucose,Urine (UA) Negative (Negative); Ketones,Urine Trace mg/dL (Negative); Nitrite,Urine Negative (Negative); Protein,Urine Negative (Negative); Urine Appearance Clear (Clear); Urine Color Yellow (Yellow); Urine Specific Gravity 1.025 (1.001-1.035); Urine Urobilinogen 0.2 eU/dL (<2.0)
[2022-09-14] MEDS: SODIUM CHLORIDE 0.9% 1,000 ML IV SCH (15:20)
[2022-09-14] MEDS ORDERED: BISACODYL 10 MG SUPP RECTAL PRN (16:59)
[2022-09-14] MEDS ORDERED: MINERAL OIL ENEMA 133 ML BOTTLE RECTAL ONE (17:00)
[2022-09-14] MEDS: hydrALAZINE 25 MG TABLET PO SCH (20:06)
[2022-09-14] MEDS: carvediloL 25 MG TABLET PO SCH (20:06)
[2022-09-14] MEDS: DOCUSATE SODIUM 100 MG CAPSULE PO SCH (20:06)
[2022-09-14] MEDS: TAMSULOSIN 0.4 MG CAPSULE PO SCH (20:06)
[2022-09-15] MEDS: SODIUM CHLORIDE 0.9% 1,000 ML IV SCH ×2 (00:36→09:36)
[2022-09-15 04:19] LABS: Basophils % 0.2 % (0.0-0.8); Eosinophils # 0.1 10*3/uL (0.0-0.87); Eosinophils % 1.7 % (0.00-10.9); Hematocrit 36.6 VOL% (42.0-52.0); Hemoglobin 11.5 GM/DL (14.0-18.0); Immature Granulocytes % 0.4 %; Immature Granulocytes Absolute 0.03 #; Lymphocytes # 1.6 10*3/uL (1.4-4.0); Lymphocytes % 19.2 % (21.2-54.2); Mean Corpuscular HGB Conc 31.4 GM/DL (32-36); Mean Corpuscular Volume 79.7 FL (87-102); Mean Platelet Volume 10.5 FL (9.6-12.0); Monocytes # 0.8 10*3/uL (0.11-0.8); Monocytes % 9.7 % (1.7-12.7); Neutrophils % 68.8 % (38.7-73.9); Platelet Count 210 T/CUMM (130-400); Red Blood Count 4.59 MC/CUMM (3.8-5.5); Red Cell Distribution Width 18.6 % (9.3-17.3); White Blood Count 8.4 T/CUMM (4-12)
[2022-09-15 04:39] LABS: Alanine Aminotransferase 9 U/L (16-61); Albumin 2.9 G/DL (3.4-5.0); Alkaline Phosphatase 73 U/L (45-117); Aspartate Amino Transferase 11 U/L (0-37); Bilirubin,Total < 0.39 MG/DL (0.20-1.00); Blood Urea Nitrogen 20 MG/DL (7-18); Calcium 8.7 MG/DL (8.5-10.1); Carbon Dioxide 20 MMOL/L (21-32); Chloride 116 MMOL/L (98-107); Glucose 102 MG/DL (74-106); Osmolality,Calculated 285.1 MOS/KG (273-304); Potassium 3.8 MMOL/L (3.5-5.1); Sodium 142 MMOL/L (136-145); Total Protein 6.4 G/DL (6.4-8.2)
[2022-09-15] MEDS ORDERED: PANTOPRAZOLE 40 MG TABLET PO SCH (09:00)
[2022-09-15] MEDS: DOCUSATE SODIUM 100 MG CAPSULE PO SCH ×2 (09:34→21:18)
[2022-09-15] MEDS: POTASSIUM CHLORIDE 20 MEQ TABLET PO SCH (09:34)
[2022-09-15] MEDS: TAMSULOSIN 0.4 MG CAPSULE PO SCH ×2 (09:35→21:18)
[2022-09-15] MEDS: MAGNESIUM CHLORIDE 64 MG TABLET PO SCH (09:35)
[2022-09-15] MEDS: ISOSORBIDE MONONITRATE 30 MG TABLET PO SCH (09:35)
[2022-09-15] MEDS: amLODIPine 10 MG TABLET PO SCH (09:35)
[2022-09-15] MEDS: PANTOPRAZOLE 40 MG TABLET PO SCH (09:35)
[2022-09-15] MEDS: carvediloL 25 MG TABLET PO SCH ×2 (09:35→21:18)
[2022-09-15] MEDS: hydrALAZINE 25 MG TABLET PO SCH ×2 (09:35→21:18)
[2022-09-15] MEDS: POLYETHYLENE GLYCOL POWDER 17 GM PACK PO SCH (09:36)
[2022-09-15] MEDS: FINASTERIDE 5 MG TABLET PO SCH (09:37)
[2022-09-15] MEDS ORDERED: BENZONATATE 100 MG CAPSULE PO PRN (11:19)
[2022-09-15] MEDS: methylPREDNISolone SOD SUC 40 MG/1 ML VIAL IV SCH ×2 (14:26→21:18)
[2022-09-15] MEDS: cefTRIAXone 1,000 MG in SODIUM CHLORIDE 0.9% 100 ML IV SCH (14:27)
[2022-09-15] MEDS: ALBUTEROL/IPRATROPIUM 3 ML NEB RESP TX SCH ×2 (15:00→19:26)
[2022-09-16] MEDS: ALBUTEROL/IPRATROPIUM 3 ML NEB RESP TX SCH ×6 (00:37→19:46)
[2022-09-16] MEDS: methylPREDNISolone SOD SUC 40 MG/1 ML VIAL IV SCH ×3 (05:24→21:33)
[2022-09-16 06:33] LABS: Alanine Aminotransferase 11 U/L (16-61); Albumin 3.3 G/DL (3.4-5.0); Alkaline Phosphatase 90 U/L (45-117); Aspartate Amino Transferase 10 U/L (0-37); Bilirubin,Total < 0.39 MG/DL (0.20-1.00); Blood Urea Nitrogen 22 MG/DL (7-18); Calcium 9.4 MG/DL (8.5-10.1); Carbon Dioxide 20 MMOL/L (21-32); Chloride 112 MMOL/L (98-107); Glucose 147 MG/DL (74-106); Osmolality,Calculated 282.5 MOS/KG (273-304); Potassium 4.1 MMOL/L (3.5-5.1); Sodium 139 MMOL/L (136-145)
[2022-09-16 06:45] LABS: Basophils % 0.1 % (0.0-0.8); Hemoglobin 13.3 GM/DL (14.0-18.0); Immature Granulocytes % 0.6 %; Immature Granulocytes Absolute 0.05 #; Lymphocytes # 1.1 10*3/uL (1.4-4.0); Lymphocytes % 11.8 % (21.2-54.2); Mean Corpuscular HGB Conc 30.9 GM/DL (32-36); Mean Corpuscular Volume 79.3 FL (87-102); Mean Platelet Volume 10.1 FL (9.6-12.0); Monocytes # 0.1 10*3/uL (0.11-0.8); Monocytes % 1.4 % (1.7-12.7); Neutrophils % 86.1 % (38.7-73.9); Platelet Count 242 T/CUMM (130-400); Red Blood Count 5.42 MC/CUMM (3.8-5.5); Red Cell Distribution Width 19.2 % (9.3-17.3); White Blood Count 9.1 T/CUMM (4-12)
[2022-09-16] MEDS: ISOSORBIDE MONONITRATE 30 MG TABLET PO SCH (08:50)
[2022-09-16] MEDS: amLODIPine 10 MG TABLET PO SCH (08:50)
[2022-09-16] MEDS: POLYETHYLENE GLYCOL POWDER 17 GM PACK PO SCH (08:50)
[2022-09-16] MEDS: carvediloL 25 MG TABLET PO SCH ×2 (08:50→21:33)
[2022-09-16] MEDS: TAMSULOSIN 0.4 MG CAPSULE PO SCH ×2 (08:51→21:33)
[2022-09-16] MEDS: FINASTERIDE 5 MG TABLET PO SCH (08:51)
[2022-09-16] MEDS: PANTOPRAZOLE 40 MG TABLET PO SCH (08:51)
[2022-09-16] MEDS: hydrALAZINE 25 MG TABLET PO SCH ×2 (08:51→21:33)
[2022-09-16] MEDS: POTASSIUM CHLORIDE 20 MEQ TABLET PO SCH (08:51)
[2022-09-16] MEDS: DOCUSATE SODIUM 100 MG CAPSULE PO SCH ×2 (08:51→21:33)
[2022-09-16] MEDS: MAGNESIUM CHLORIDE 64 MG TABLET PO SCH (08:51)
[2022-09-16] MEDS: cefTRIAXone 1,000 MG in SODIUM CHLORIDE 0.9% 100 ML IV SCH (11:50)
[2022-09-16] MEDS: ONDANSETRON 4 MG/2 ML VIAL IV PRN (16:07)
[2022-09-17] MEDS: ALBUTEROL/IPRATROPIUM 3 ML NEB RESP TX SCH ×6 (00:07→19:48)
[2022-09-17] MEDS: ACETAMINOPHEN 325 MG TABLET PO PRN (00:27)
[2022-09-17 05:16] LABS: Basophils % 0.1 % (0.0-0.8); Hematocrit 37.6 VOL% (42.0-52.0); Hemoglobin 12.1 GM/DL (14.0-18.0); Immature Granulocytes % 0.7 %; Lymphocytes # 1.4 10*3/uL (1.4-4.0); Mean Corpuscular HGB Conc 32.2 GM/DL (32-36); Mean Corpuscular Volume 78.7 FL (87-102); Mean Platelet Volume 11.4 FL (9.6-12.0); Monocytes # 0.3 10*3/uL (0.11-0.8); Monocytes % 2.1 % (1.7-12.7); Neutrophils % 87.1 % (38.7-73.9); Platelet Count 227 T/CUMM (130-400); Red Blood Count 4.78 MC/CUMM (3.8-5.5); Red Cell Distribution Width 18.6 % (9.3-17.3); White Blood Count 14.5 T/CUMM (4-12)
[2022-09-17] MEDS: methylPREDNISolone SOD SUC 40 MG/1 ML VIAL IV SCH ×3 (05:27→21:10)
[2022-09-17 05:32] LABS: Alanine Aminotransferase 10 U/L (16-61); Alkaline Phosphatase 80 U/L (45-117); Aspartate Amino Transferase 11 U/L (0-37); Bilirubin,Total < 0.39 MG/DL (0.20-1.00); Blood Urea Nitrogen 29 MG/DL (7-18); Calcium 9.3 MG/DL (8.5-10.1); Carbon Dioxide 19 MMOL/L (21-32); Chloride 112 MMOL/L (98-107); Glucose 139 MG/DL (74-106); Osmolality,Calculated 286.4 MOS/KG (273-304); Potassium 3.9 MMOL/L (3.5-5.1); Sodium 140 MMOL/L (136-145); Total Protein 6.9 G/DL (6.4-8.2)
[2022-09-17] MEDS: TAMSULOSIN 0.4 MG CAPSULE PO SCH ×2 (09:08→21:08)
[2022-09-17] MEDS: POLYETHYLENE GLYCOL POWDER 17 GM PACK PO SCH (09:08)
[2022-09-17] MEDS: amLODIPine 10 MG TABLET PO SCH (09:08)
[2022-09-17] MEDS: POTASSIUM CHLORIDE 20 MEQ TABLET PO SCH (09:08)
[2022-09-17] MEDS: DOCUSATE SODIUM 100 MG CAPSULE PO SCH ×2 (09:09→21:08)
[2022-09-17] MEDS: PANTOPRAZOLE 40 MG TABLET PO SCH (09:09)
[2022-09-17] MEDS: hydrALAZINE 25 MG TABLET PO SCH ×2 (09:09→21:08)
[2022-09-17] MEDS: MAGNESIUM CHLORIDE 64 MG TABLET PO SCH (09:09)
[2022-09-17] MEDS: carvediloL 25 MG TABLET PO SCH ×2 (09:09→21:08)
[2022-09-17] MEDS: ISOSORBIDE MONONITRATE 30 MG TABLET PO SCH (09:09)
[2022-09-17] MEDS: FINASTERIDE 5 MG TABLET PO SCH (09:10)
[2022-09-17] MEDS: cefTRIAXone 1,000 MG in SODIUM CHLORIDE 0.9% 100 ML IV SCH (11:43)
[2022-09-18] MEDS: ALBUTEROL/IPRATROPIUM 3 ML NEB RESP TX SCH ×6 (00:57→19:10)
[2022-09-18] MEDS: methylPREDNISolone SOD SUC 40 MG/1 ML VIAL IV SCH ×3 (05:55→22:00)
[2022-09-18 06:37] LABS: Basophils % 0.1 % (0.0-0.8); Hematocrit 40.1 VOL% (42.0-52.0); Hemoglobin 12.9 GM/DL (14.0-18.0); Immature Granulocytes Absolute 0.11 #; Lymphocytes # 1.1 10*3/uL (1.4-4.0); Lymphocytes % 9.5 % (21.2-54.2); Mean Corpuscular HGB Conc 32.2 GM/DL (32-36); Mean Corpuscular Volume 79.1 FL (87-102); Monocytes # 0.4 10*3/uL (0.11-0.8); Monocytes % 3.7 % (1.7-12.7); Neutrophils % 85.7 % (38.7-73.9); Platelet Count 222 T/CUMM (130-400); Red Blood Count 5.07 MC/CUMM (3.8-5.5); Red Cell Distribution Width 18.5 % (9.3-17.3); White Blood Count 11.5 T/CUMM (4-12)
[2022-09-18 06:55] LABS: Alanine Aminotransferase 17 U/L (16-61); Alkaline Phosphatase 83 U/L (45-117); Aspartate Amino Transferase 18 U/L (0-37); Bilirubin,Total < 0.39 MG/DL (0.20-1.00); Blood Urea Nitrogen 26 MG/DL (7-18); Calcium 9.3 MG/DL (8.5-10.1); Carbon Dioxide 22 MMOL/L (21-32); Chloride 110 MMOL/L (98-107); Glucose 127 MG/DL (74-106); Osmolality,Calculated 285.4 MOS/KG (273-304); Sodium 140 MMOL/L (136-145); Total Protein 6.6 G/DL (6.4-8.2)
[2022-09-18] MEDS: POLYETHYLENE GLYCOL POWDER 17 GM PACK PO SCH (09:08)
[2022-09-18] MEDS: carvediloL 25 MG TABLET PO SCH ×2 (09:09→20:49)
[2022-09-18] MEDS: amLODIPine 10 MG TABLET PO SCH (09:09)
[2022-09-18] MEDS: TAMSULOSIN 0.4 MG CAPSULE PO SCH ×2 (09:09→20:48)
[2022-09-18] MEDS: POTASSIUM CHLORIDE 20 MEQ TABLET PO SCH (09:09)
[2022-09-18] MEDS: ISOSORBIDE MONONITRATE 30 MG TABLET PO SCH (09:09)
[2022-09-18] MEDS: FINASTERIDE 5 MG TABLET PO SCH (09:09)
[2022-09-18] MEDS: DOCUSATE SODIUM 100 MG CAPSULE PO SCH ×2 (09:09→20:49)
[2022-09-18] MEDS: hydrALAZINE 25 MG TABLET PO SCH ×2 (09:09→20:48)
[2022-09-18] MEDS: MAGNESIUM CHLORIDE 64 MG TABLET PO SCH (09:09)
[2022-09-18] MEDS: PANTOPRAZOLE 40 MG TABLET PO SCH (09:09)
[2022-09-18] MEDS: cefTRIAXone 1,000 MG in SODIUM CHLORIDE 0.9% 100 ML IV SCH (10:56)
[2022-09-19] MEDS: ALBUTEROL/IPRATROPIUM 3 ML NEB RESP TX SCH ×6 (00:30→20:17)
[2022-09-19] MEDS: methylPREDNISolone SOD SUC 40 MG/1 ML VIAL IV SCH ×2 (05:09→15:26)
[2022-09-19 05:29] LABS: Basophils % 0.1 % (0.0-0.8); Hematocrit 39.2 VOL% (42.0-52.0); Hemoglobin 12.5 GM/DL (14.0-18.0); Immature Granulocytes % 0.8 %; Immature Granulocytes Absolute 0.08 #; Lymphocytes # 1.1 10*3/uL (1.4-4.0); Lymphocytes % 10.7 % (21.2-54.2); Mean Corpuscular HGB Conc 31.9 GM/DL (32-36); Mean Corpuscular Volume 78.4 FL (87-102); Mean Platelet Volume 10.4 FL (9.6-12.0); Monocytes # 0.4 10*3/uL (0.11-0.8); Monocytes % 3.6 % (1.7-12.7); Neutrophils % 84.8 % (38.7-73.9); Platelet Count 222 T/CUMM (130-400); Red Cell Distribution Width 18.3 % (9.3-17.3); White Blood Count 9.9 T/CUMM (4-12)
[2022-09-19 06:02] LABS: Alanine Aminotransferase 17 U/L (16-61); Albumin 2.6 G/DL (3.4-5.0); Alkaline Phosphatase 78 U/L (45-117); Aspartate Amino Transferase 8 U/L (0-37); Bilirubin,Total < 0.39 MG/DL (0.20-1.00); Blood Urea Nitrogen 24 MG/DL (7-18); Calcium 8.9 MG/DL (8.5-10.1); Carbon Dioxide 23 MMOL/L (21-32); Chloride 110 MMOL/L (98-107); Glucose 125 MG/DL (74-106); Osmolality,Calculated 283.4 MOS/KG (273-304); Sodium 140 MMOL/L (136-145); Total Protein 6.4 G/DL (6.4-8.2)
[2022-09-19] MEDS: MAGNESIUM CHLORIDE 64 MG TABLET PO SCH (10:32)
[2022-09-19] MEDS: hydrALAZINE 25 MG TABLET PO SCH ×2 (10:32→20:47)
[2022-09-19] MEDS: carvediloL 25 MG TABLET PO SCH ×2 (10:32→20:47)
[2022-09-19] MEDS: ISOSORBIDE MONONITRATE 30 MG TABLET PO SCH (10:33)
[2022-09-19] MEDS: PANTOPRAZOLE 40 MG TABLET PO SCH (10:33)
[2022-09-19] MEDS: DOCUSATE SODIUM 100 MG CAPSULE PO SCH ×2 (10:33→20:47)
[2022-09-19] MEDS: POTASSIUM CHLORIDE 20 MEQ TABLET PO SCH (10:33)
[2022-09-19] MEDS: amLODIPine 10 MG TABLET PO SCH (10:33)
[2022-09-19] MEDS: TAMSULOSIN 0.4 MG CAPSULE PO SCH ×2 (10:33→20:47)
[2022-09-19] MEDS: cefTRIAXone 1,000 MG in SODIUM CHLORIDE 0.9% 100 ML IV SCH (10:34)
[2022-09-19] MEDS: POLYETHYLENE GLYCOL POWDER 17 GM PACK PO SCH (10:37)
[2022-09-19] MEDS: FINASTERIDE 5 MG TABLET PO SCH (10:38)
[2022-09-19] MEDS: ONDANSETRON 4 MG/2 ML VIAL IV PRN (20:46)
[2022-09-20] MEDS: ALBUTEROL/IPRATROPIUM 3 ML NEB RESP TX SCH ×3 (02:55→10:56)
[2022-09-20] MEDS: ACETAMINOPHEN 325 MG TABLET PO PRN (04:09)
[2022-09-20 05:46] LABS: Basophils % 0.3 % (0.0-0.8); Eosinophils % 0.1 % (0.00-10.9); Hematocrit 38.2 VOL% (42.0-52.0); Hemoglobin 12.3 GM/DL (14.0-18.0); Immature Granulocytes % 1.1 %; Immature Granulocytes Absolute 0.12 #; Lymphocytes % 18.4 % (21.2-54.2); Mean Corpuscular HGB Conc 32.2 GM/DL (32-36); Mean Platelet Volume 10.8 FL (9.6-12.0); Monocytes % 9.8 % (1.7-12.7); NRBC # 0.02 10*3/uL; Neutrophils % 70.3 % (38.7-73.9); Platelet Count 223 T/CUMM (130-400); Red Cell Distribution Width 18.3 % (9.3-17.3); White Blood Count 10.6 T/CUMM (4-12)
[2022-09-20 06:05] LABS: Polychromasia Slight
[2022-09-20 06:06] LABS: Hypochromia 1+; Microcytosis Slight; Platelet Estimate Normal; Target Cells Slight
[2022-09-20 06:29] LABS: Alanine Aminotransferase 17 U/L (16-61); Albumin 2.5 G/DL (3.4-5.0); Alkaline Phosphatase 75 U/L (45-117); Aspartate Amino Transferase 7 U/L (0-37); Bilirubin,Total < 0.39 MG/DL (0.20-1.00); Blood Urea Nitrogen 28 MG/DL (7-18); Calcium 8.8 MG/DL (8.5-10.1); Carbon Dioxide 23 MMOL/L (21-32); Chloride 110 MMOL/L (98-107); Glucose 92 MG/DL (74-106); Osmolality,Calculated 284.4 MOS/KG (273-304); Potassium 4.2 MMOL/L (3.5-5.1); Sodium 140 MMOL/L (136-145); Total Protein 5.9 G/DL (6.4-8.2)
[2022-09-20] MEDS: POLYETHYLENE GLYCOL POWDER 17 GM PACK PO SCH (08:55)
[2022-09-20] MEDS: FINASTERIDE 5 MG TABLET PO SCH (08:55)
[2022-09-20] MEDS: DOCUSATE SODIUM 100 MG CAPSULE PO SCH (08:55)
[2022-09-20] MEDS: hydrALAZINE 25 MG TABLET PO SCH (08:55)
[2022-09-20] MEDS: amLODIPine 10 MG TABLET PO SCH (08:55)
[2022-09-20] MEDS: PANTOPRAZOLE 40 MG TABLET PO SCH (08:55)
[2022-09-20] MEDS: ISOSORBIDE MONONITRATE 30 MG TABLET PO SCH (08:55)
[2022-09-20] MEDS: POTASSIUM CHLORIDE 20 MEQ TABLET PO SCH (08:55)
[2022-09-20] MEDS: carvediloL 25 MG TABLET PO SCH (08:55)
[2022-09-20] MEDS: TAMSULOSIN 0.4 MG CAPSULE PO SCH (08:55)
[2022-09-20] MEDS: MAGNESIUM CHLORIDE 64 MG TABLET PO SCH (08:56)
[2022-09-20] MEDS ORDERED: predniSONE 20 MG TABLET PO SCH (09:00)
[2022-09-20 14:03] VITALS: BP 140/67
[2022-09-20] MEDS: cefTRIAXone 1,000 MG in SODIUM CHLORIDE 0.9% 100 ML IV SCH (14:04)
== END 2022-09-20 14:05 | disposition home health service (06) | DRG 191 ==
LOC: N.ED 11:09 → N.EDINP 11:09 → N.TELES 15:45
PROVIDERS: ADMIT Family Medicine; ATTEND Family Medicine